=== PATIENT | female | born 1950 | race Two or more races ===

== ENCOUNTER 2017-11-19 06:59 | Day surgery (SDC) | payer OTHER ==
[2017-11-18 11:59] VITALS: BMI 25.9
[2017-11-19] MEDS ORDERED: PROPOFOL 20 ML ONE ×2 (08:04)
[2017-11-19] MEDS ORDERED: SUCCINYLCHOLINE CHLORIDE 200 MG/10 ML VIAL ONE (08:06)
[2017-11-19 08:35] VITALS: TEMP 97.7
[2017-11-19 11:12] VITALS: BP 126/67; PULSE 85
== END 2017-11-19 09:20 | disposition home or self-care (01) ==
LOC: JASU-ENDO 06:59
PROVIDERS: ATTEND Internal Medicine Gastroenterology
PROC: 0DJD8ZZ Inspection of Lower Intestinal Tract, Via Natural or Artificial Opening Endoscopic (ICD-10-PCS; principal; 2017-11-19 08:00)
DX: Z12.11 Encounter for screening for malignant neoplasm of colon (principal); K64.8 Other hemorrhoids

== ENCOUNTER 2019-08-09 11:42 | Inpatient (IN) | payer OTHER ==
[2019-08-09 11:49] VITALS: BMI 26.9
[2019-08-09] MEDS ORDERED: METOCLOPRAMIDE HCL INJECTION 10 MG/2 ML VIAL IVPB ONE (12:33)
[2019-08-09] MEDS ORDERED: LACTATED RINGERS SOLUTION 1,000 ML/1,000 ML INFUS.BAG IV STA (12:33)
--- NOTE | 2019-08-09 12:33 | PDOC ---
History of Present Illness - General Chief Complaint: Lightheaded Stated Complaint: LIGHTHEADED, WEAKNESS, HEADACHE History Source: Patient Exam Limitations: No Limitations - History of Present Illness Initial Comments: 08/09/19 12:27 68 yo F PMH IDDM, HTN, HLD, presenting with intermittent dizziness. States that on Friday night she had an episode of "room spinning" dizziness, associated with CRAFT, N w/o V, and diaphoresis, lasting minutes at a time, without any chest pain or abdominal pain, leaving her lying down and too dizzy to stand up. Denies fall, head trauma, or LOC. Repeat episodes Friday morning, Friday, and this morning. States that she has taken aspirin each time due to being scared, with prompt reversal of symptoms. Has taken two 81mg aspirin in the morning and two at night for the past three days, normally takes 81mg once a day. Currently complains of CRAFT, 05/12, throughout head. Denies urinary symptoms, weakness, numbness, or tingling, SOB, CP, abd pain. Past History - Past Medical History Allergies/Adverse Reactions: Allergies Allergy/AdvReac Type Severity Reaction Status Date / Time No Known Allergies Allergy Verified 08/09/19 11:49 Home Medications: Ambulatory Orders Acarbose [Precose -] 25 mg PO TID 11/18/17 Aspirin [Aspirin EC] 81 mg PO DAILY 11/18/17 Cholecalciferol (Vitamin D3) [Vitamin D3] 2,000 unit PO DAILY 11/18/17 Dulaglutide [Trulicity] 1.5 mg SQ WEEKLY 11/18/17 Fenofibrate Nanocrystallized [Triglide] 160 mg PO DAILY 11/18/17 Glyburide/Metformin HCl [Glyburide-Metformin 5-500 mg] 1.5 each PO DAILY Hydrochlorothiazide [Hctz -] 12.5 mg PO DAILY 11/18/17 Icosapent Ethyl [Vascepa] 1 gm PO QID 11/18/17 Krill/Om-3/Dha/Epa/Phospho/Ast [Krill Oil 500 mg Softgel] 1 each PO DAILY Rosuvastatin Calcium 20 mg PO HS 11/18/17 Telmisartan [Micardis] 20 mg PO DAILY 11/18/17 Anemia: No Asthma: No Cancer: No Cardiac Disorders: No CVA: No COPD: No CHF: No Dementia: No Diabetes: Yes (INSULIN DEPENDENT) GI Disorders: No Disorders: No HTN: Yes Hypercholesterolemia: Yes Liver Disease: No Seizures: No Thyroid Disease: No - Surgical History Abdominal Surgery: No Appendectomy: No Cardiac Surgery: No Cholecystectomy: No Lung Surgery: No Neurologic Surgery: No Orthopedic Surgery: No - Immunization History Immunization Up to Date: Yes - Psycho Social/Smoking Cessation Hx Smoking History: Never smoked Have you smoked in the past 12 months: No Number of Cigarettes Smoked Daily: 0 If you are a former smoker, when did you quit?: 0 Cigars Per Day: 0 Information on smoking cessation initiated: No Hx Alcohol Use: No Drug/Substance Use Hx: No Substance Use Type: None Review of Systems - Review of Systems Able to Perform ROS?: Yes Constitutional: Yes: Diaphoresis. No: Chills, Fever, Weakness HEENTM: No: Recent change in vision, Hearing Loss, Difficulty Swallowing Respiratory: No: Cough, Orthopnea, Shortness of Breath Cardiac (ROS): No: Chest Pain, Edema, Irregular Heart Rate ABD/GI: Yes: Nausea. No: Abdominal Distended, Constipated, Diarrhea, Vomiting : No: Burning, Dysuria, Discharge, Frequency, Flank Pain, Hematuria Musculoskeletal: No: Back Pain, Muscle Weakness Integumentary: No: Bruising, Dryness Neurological: Yes: Headache. No: Numbness, Paresthesia, Tingling Psychiatric: Yes: Anxiety. No: Depression *Physical Exam - Vital Signs Last Vital Signs Temp Pulse Resp BP Pulse Ox 98 F 91 H 18 138/81 99 08/09/19 11:47 08/09/19 11:47 08/09/19 11:47 08/09/19 11:47 08/09/19 11:47 - Physical Exam Comments: 08/09/19 13:08 Gen: well-developed, well-nourished, appears anxious Neuro: AAOX4, CN II-XII intact, FTN intact, EOMI, PERRLA. No nystagmus. 4/5 strength in R arm, 5/5 strength in all other extremities. HEENT: atraumatic, normocephalic Neck: trachea midline, supple CV: regular rate, regular rhythm Pulm: CTA b/l, no wheezing Abd: soft, non-distended, non-tender MSK: full ROM, pulses intact Extr: no edema, no deformities Skin: warm, dry ED Treatment Course - LABORATORY CBC & Chemistry Diagram: 08/09/19 12:30 08/09/19 12:30 - RADIOLOGY Radiology Studies Ordered: Category Date Time Status CHEST PA & LAT [RAD] Stat Radiology 08/09/19 12:25 Ordered Medical Decision Making - Medical Decision Making 08/09/19 13:11 Concern for ACS vs UTI vs electrolyte abnormality. - CBC, CMP - EKG, trop, DX PA + L - UA/UC - 1L LR and Reglan for current headache - ctm 08/09/19 13:53 Cr 2, confirmed with patient that she has known kidney disease 2/2 diabetes. EKG normal sinus without ischemic changes, CXR without acute pathology. 08/09/19 13:[address] Corado, states that the patient had significant R arm weakness when seen this morning in the office. While this appears to have mostly resolved here in the ED, considering the patient's risk factors and presenting symptomology, will get CT head non con. 08/09/19 14:56 CT head w/o intracranial hemorrhage or acute territorial infarct, however, patient has nonhemorrhagic lacunar infarct in L anterior periventricular white matter of indeterminate age. Also supratentorial microangiopathic ischemic changes with gliosis. Considering patient's risk factors and presentation, will get her admitted. 08/09/19 15:[address] Corado, who requested that we consult Dr. Daily (neuro) and Dr. Baldwin (covering for Dr. Russell). States Cr normally 1.6-1.8, so Cr of 2 is high for her. Discharge - Discharge Information Problems reviewed: Yes Clinical Impression/Diagnosis: Right sided weakness, Dizziness Condition: Guarded - Admission Yes - Follow up/Referral - Patient Discharge Instructions - Post Discharge Activity
[2019-08-09] MEDS ORDERED: METOCLOPRAMIDE HCL INJECTION 10 MG/2 ML VIAL ONE (12:44)
[2019-08-09 13:04] LABS: BASO % 0.6 % (0-2.0); EOS % 2.7 % (0-4.5); HEMATOCRIT 33.7 % (32.4-45.2); HEMOGLOBIN 11.2 GM/dL (10.7-15.3); LYMPH % 23.2 % (8-40); MCH 27.8 pg (25.7-33.7); MCHC 33.3 g/dl (32.0-36.0); MEAN CELL VOLUME 83.5 fl (80-96); MEAN PLT VOLUME 9.3 fl (7.5-11.1); MONO % 5.8 % (3.8-10.2); NEUT % 67.7 % (42.8-82.8); PLATELET COUNT 227 K/MM3 (134-434); RBC 4.04 M/mm3 (3.60-5.2); RDW 14.3 % (11.6-15.6); WHITE BLOOD COUNT 8.4 K/mm3 (4.0-10.0)
[2019-08-09 13:05] LABS: EPI CELLS 3.8 /HPF (0-5/HPF); HYALINE CASTS 6 /lpf (0-8); PH,URINE 5.5 (5.0-8.0); URINE APPEARANCE CLEAR; URINE BACTERIA 8.2 /hpf (NEGATIVE); URINE BILIRUBIN NEGATIVE (NEGATIVE); URINE COLOR YELLOW; URINE GLUCOSE (UA) TRACE (NEGATIVE); URINE KETONE NEGATIVE (NEGATIVE); URINE LEUK ESTERASE NEGATIVE (NEGATIVE); URINE NITRITE NEGATIVE (NEGATIVE); URINE PROTEIN 3+ (NEGATIVE); URINE RBC 0 /hpf (0-4); URINE UROBILINOGEN 0.2 mg/dL (0.2-1.0); URINE WBC 4 /hpf (0-5)
[2019-08-09 13:27] LABS: ALBUMIN 3.5 g/dl (3.4-5.0); BILIRUBIN,TOTAL 0.4 mg/dL (0.2-1); BLOOD UREA NITROGEN 30.1 mg/dL (7-18); CALCIUM 8.8 mg/dL (8.5-10.1); POTASSIUM 4.6 mmol/L (3.5-5.1); TOT PROT 7.6 g/dl (6.4-8.2)
--- NOTE | 2019-08-09 16:12 | EKG ---
Test Reason : Blood Pressure : / mmHG Vent. Rate : 084 BPM Atrial Rate : 084 BPM P-R Int : 160 ms QRS Dur : 086 ms QT Int : 346 ms P-R-T Axes : 018 -15 049 degrees QTc Int : 408 ms NORMAL SINUS RHYTHM NORMAL ECG WHEN COMPARED WITH ECG OF 27-AUG-2017 14:01, NO SIGNIFICANT CHANGE WAS FOUND Confirmed by SALOME GUILLERMO MD ([id number]) on 08/09/2019 4:12:11 PM Referred By: Confirmed By:SALOME GUILLERMO MD
--- NOTE | 2019-08-09 16:36 | PDOC ---
Attending Attestation - Resident Resident Name: Saeed Dwyer - ED Attending Attestation I have performed the following: I have examined & evaluated the patient, The case was reviewed & discussed with the resident, I agree w/resident's findings & plan, Exceptions are as noted - HPI HPI: 08/09/19 16:32 68-year-old female history of hypertension hyperlipidemia and diabetes here today complaining of vertigo-like symptoms and dizziness for the last 3 days. Patient states she noted it 3 days ago on awakening from sleep. Imbler like the room was spinning she felt extremely nauseous did not throw up but felt like she had to have a bowel movement became diaphoretic at that time. Now she is describing persistent room spinning feeling worse in the a.m. worse with certain movements and going from a lying to a sitting position. States she is still having symptoms here today denies any chest pains or palpitations was seen by Dr. Corado in the office and sent to the ED for evaluation. Patient denies any changes to her speech no focal weakness that she noted no fevers chills no ear ringing no other current complaints - Physicial Exam PE: 08/09/19 16:34 Awake alert no acute distress lungs are clear bilaterally heart is regular without any murmurs rubs or gallops abdomen is soft nontender skin is warm and dry neurologically the patient is awake alert oriented x3 her speech is clear cranial nerves II through XII are intact. Strength is noted to have mild right upper and right lower extremity weakness approximately 4+ out of 5. All else is 5 out of 5 [id number] is normal alternating hand movements are normal negative Romberg patient has a positive [place]-Hallpike to the right is extremely symptomatic going from lying to sitting . - Medical Decision Making 08/09/19 16:35 68-year-old female here complaint of vertigo history of hypertension hyperlipidemia and diabetes differential includes positional vertigo versus cerebellar CVA. Due to the subtle weakness on the patient's exam CT head was ordered chest x-ray and UA were ordered to rule out any underlying infection CBC CMP and troponin to rule out any underlying electrolyte ab normalities or anemia Patient CT head with age-indeterminate lacunar infarct will admit patient will require MRI will consult neurology Dr. Jenkins Heart Score/ECG Review #1 General ECG Interpretation: Sinus Rhythm, Normal Rate (84), Normal Intervals, No acute ischemic changes Compared to previous ECG there are: Other (left axis. no st t wave changes) NIH Stroke Scale - Initial Evaluation Level of consciousness: Alert Ask patient the month and their age: Answers both correctly Ask patient to open & close eyes; make fist and let go: Obeys both correctly Best gaze (horizontal eye movement): Normal Visual field testing: No visual field loss Facial paresis (Show teeth/raise eyebrows/close eyes tight): Normal symmetrical movement Motor Function: Left Arm: Normal Motor Function: Right Arm: Drift Motor Function: Left Leg: Normal (extends leg 30 degrees for 5 seconds without drift) Motor Function: Right Leg: Drift Limb Ataxia: No ataxia Sensory(Use pinprick test arms,legs,trunk,face/side to side): Normal Best language (Describe picture, name items, read sentences): No Aphasia Dysarthria (read several words): Normal articulation Extinction and Inattention: No abnormality - Total Score NIH Stroke Scale Score: 2
[2019-08-09] MEDS: INSULIN SLIDING SCALE (NOVOLOG) 1 VIAL SQ SCH ×2 (16:54→22:06)
[2019-08-09] MEDS: SODIUM CHLORIDE 1,000 ML IV SCH (16:56)
--- NOTE | 2019-08-09 17:31 | HP ---
CHIEF COMPLAINT: Weakness, vertigo PCP: Dr. Corado HISTORY OF PRESENT ILLNESS: 68yo R-handed F with h/o of T2DM, HTN, HLD who presents today due to vertigo and new onset R arm weakness. Pt reports she has been experiencing vertigo episodes for about 1-2 weeks. 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 She reports during these episodes she experiences extreme diaphoresis, chills, and some shortness of breath. She reports they last about 5-6 minutes and she is able to return to her daily activities without problems. After her vertigo episodes she notices intense 7-8/ 10 headache mostly b/l in the superior regions. Today she was seen by Dr. Corado, her PCP in the office, when it was noticed she had new onset R arm/ hand weakness. She reports she has had this for about 2-3 days and has had trouble holding coffee cups and other activites. Her at bedside reports that he will notice her shaking as well when she is trying to lift something. Pt denies any fevers, cough, shortness of breath, blurry vision, word-finding difficulties, chest pain, palpitations, diarrhea, numbness/tingling, difficulties with coordination, trouble walking. Of note: pt's most recent imaging of carotid u/s shows possible variance the vertebral arteries which could be suggestive of some intraluminal narrowing vs. other abnormality. Unsure of what prompted this exam as patient reports it was routine imaging and has no other insights into it. In addition, pt's baseline Cr is 1.5-1.[address] Corado to the ED physicians. PAST MEDICAL HISTORY: Type 2 DM HTN HLD PAST SURGICAL HISTORY: None Social History: Smoking: Denies Alcohol: Denies Drugs: Denies Lives with ; indepedent in ADLs Allergies No Known Allergies Allergy (Verified 08/09/19 11:49) HOME MEDICATIONS: Home Medications Medication Instructions Recorded Acarbose [Precose -] 25 mg PO TID 11/18/17 Aspirin [Aspirin EC] 81 mg PO DAILY 11/18/17 Cholecalciferol (Vitamin D3) 2,000 unit PO DAILY 11/18/17 [Vitamin D3] Dulaglutide [Trulicity] 1.5 mg SQ WEEKLY 11/18/17 Fenofibrate Nanocrystallized 160 mg PO DAILY 11/18/17 [Triglide] Glyburide/Metformin HCl 1.5 each PO DAILY 11/18/17 [Glyburide-Metformin 5-500 mg] Hydrochlorothiazide [Hctz -] 12.5 mg PO DAILY 11/18/17 Icosapent Ethyl [Vascepa] 1 gm PO QID 11/18/17 Krill/Om-3/Dha/Epa/Phospho/Ast 1 each PO DAILY 11/18/17 [Krill Oil 500 mg Softgel] Rosuvastatin Calcium 20 mg PO HS 11/18/17 Telmisartan [Micardis] 20 mg PO DAILY 11/18/17 REVIEW OF SYSTEMS as per HPI PHYSICAL EXAMINATION Vital Signs - 24 hr 08/09/19 08/09/19 11:47 16:48 Temperature 98 F Pulse Rate 91 H Pulse Rate [ 92 H Apical] Respiratory 18 18 Rate Blood Pressure 138/81 Blood Pressure 143/75 [Left Arm] O2 Sat by Pulse 99 100 Oximetry (%) GENERAL: Awake, alert, and fully oriented, in no acute distress. HEENT: NC/AT, EOMI without nystagmus, NICOLE, sclera anicteric, MMM NECK: No JVD, no masses, no thyromegaly, no carotid bruits appreciated LUNGS: CTA bilaterally. No wheezes, and no crackles. No accessory muscle use. HEART: RRR, normal S1 and S2 without murmur ABDOMEN: Soft, nontender, not distended, normoactive bowel sounds, no guarding, no rebound, no masses EXTREMITIES: 2+ pulses, warm, well-perfused. No calf tenderness. No peripheral edema. NEUROLOGICAL: manager php II-XII intact. [place]-Hallpike w Strength RUE 4+/5 compared to LUE in all palma Strength RLE 4+/5 compared to LLE in hip ext/flexion. 5/5 throughout in plantar/dorsal flexion Babinski downgoing b/l No dysmetria; no dysdiadocokinesia Sensation intact throughout Normal speech. Gait not observed PSYCHIATRIC: Cooperative. Good eye contact. Appropriate mood and affect. SKIN: Warm, dry, normal turgor, no rashes or lesions noted Laboratory Results - last 24 hr 08/09/19 08/09/19 08/09/19 12:30 12:30 12:30 WBC 8.4 RBC 4.04 Hgb 11.2 Hct 33.7 MCV 83.5 MCH 27.8 MCHC 33.3 RDW 14.3 Plt Count 227 MPV 9.3 Absolute Neuts (auto) 5.7 Neutrophils % 67.7 Lymphocytes % 23.2 Monocytes % 5.8 Eosinophils % 2.7 Basophils % 0.6 Nucleated RBC % 0 Sodium 138 Potassium 4.6 Chloride 105 Carbon Dioxide 24 Anion Gap 9 BUN 30.1 H Creatinine 2.0 H Est GFR (CKD-EPI)AfAm 28.80 Est GFR (CKD-EPI)NonAf 24.85 POC Glucometer Random Glucose 197 H Calcium 8.8 Total Bilirubin 0.4 AST 21 ALT 23 Alkaline Phosphatase 61 Troponin I Total Protein 7.6 Albumin 3.5 Urine Color Yellow Urine Appearance Clear Urine pH 5.5 Ur Specific [place] 1.017 Urine Protein 3+ H Urine Glucose (UA) Trace Urine Ketones Negative Urine Blood Negative Urine Nitrite Negative Urine Bilirubin Negative Urine Urobilinogen 0.2 Ur Leukocyte Esterase Negative Urine WBC (Auto) 4 Urine RBC (Auto) 0 Urine Casts (Auto) 6 U Epithel Cells (Auto) 3.8 Urine Bacteria (Auto) 8.2 08/09/19 08/09/19 08/09/19 12:30 12:54 16:52 WBC RBC Hgb Hct MCV MCH MCHC RDW Plt Count MPV Absolute Neuts (auto) Neutrophils % Lymphocytes % Monocytes % Eosinophils % Basophils % Nucleated RBC % Sodium Potassium Chloride Carbon Dioxide Anion Gap BUN Creatinine Est GFR (CKD-EPI)AfAm Est GFR (CKD-EPI)NonAf POC Glucometer 177 289 Random Glucose Calcium Total Bilirubin AST ALT Alkaline Phosphatase Troponin I < 0.02 Total Protein Albumin Urine Color Urine Appearance Urine pH Ur Specific [place] Urine Protein Urine Glucose (UA) Urine Ketones Urine Blood Urine Nitrite Urine Bilirubin Urine Urobilinogen Ur Leukocyte Esterase Urine WBC (Auto) Urine RBC (Auto) Urine Casts (Auto) U Epithel Cells (Auto) Urine Bacteria (Auto) ASSESSMENT/PLAN: Nonhemorrhagic lacunar infarct, indeterminate R/o Posterior CVA Acute on chronic kidney insufficiency T2DM HTN HLD --Pt noted to have CVA with indeterminate age on head CT noncontrast --Location would not explain vertigo, however must search for embolic disease if present --Previous U/S showing possible vertebral artery variation in flow could possible explain vertigo with orthostatic changes --Cannot do MRA or CTA at this time due to acute renal insufficiency --Will order MRI for r/o acute infarct --Carotid stenosis and echocardiogram ordered for r/o of embolic disease --ASA 81mg qdaily continued --Home dose statin ordered --A1c and lipid panel pending; to f/u --Neurology consultation placed --Meclizine PRN ordered for pt's vertigo --Cardiac monitoring --Hold HCTZ and Micardis due to elevated Cr --Monitor Cr and avoid nephrotoxic agents --Obtain urine Cr and urine urea for FeUrea calculation --BGM ACHS with ISS ACHS for glycemic control --If routinely high glucose can start long-acting while in hospital setting FEN: Fluids: NS@83cc/hr Electrolyte abnormalities: None Nutrition: Diabetic diet PPX: DVT - Heparin TID GI - Not indicated Deconditioning - PT ordered dispo: Telemetry admission Case discussed with Dr. Shirley Gary, DO - IM PGy-3 Visit type - Emergency Visit Emergency Visit: Yes ED Registration Date: 08/09/19 Care time: The patient presented to the Emergency Department on the above date and was hospitalized for further evaluation of their emergent condition. - New Patient This patient is new to me today: Yes Date on this admission: 08/09/19 - Critical Care Critical Care patient: No ATTENDING PHYSICIAN STATEMENT I saw and evaluated the patient. I reviewed the resident's note and discussed the case with the resident. I agree with the resident's findings and plan as documented. SUBJECTIVE: OBJECTIVE: ASSESSMENT AND PLAN:
--- NOTE | 2019-08-09 18:09 | PN ---
Teaching Attending Note Name of Resident: Mustapha Gary ATTENDING PHYSICIAN STATEMENT I saw and evaluated the patient. I reviewed the resident's note and discussed the case with the resident. I agree with the resident's findings and plan as documented. SUBJECTIVE: This is a 68 year old woman with a history of HTN, hyperlipidemia, type 2 DM who comes to the ED today complaining of dizziness and right arm weakness. She has been having episodes of dizziness over the last 2 weeks. She reports having a sensation of the room spinning. Symptoms are worse with movement and occur early in the morning. She saw Dr. Corado today and he noted right arm and hand weakness. She has noticed that she has been having difficulty holding objects for the last 3 days. OBJECTIVE: Vital Signs Period Temp Pulse Resp BP Sys/[place] Pulse Ox Last 24 Hr 98 F 91-92 18-18 138-143/75-81 99-100 HEART: S1S2, RRR LUNGS: Clear ABDOMEN: Soft, non-tender, non-distended, normal BS EXTREMITIES: No edema NEUROLOGICAL: Strength 4/5 in RUE and RLE otherwise unremarkable Laboratory Results - last 24 hr 08/09/19 08/09/19 08/09/19 12:30 12:30 12:30 WBC 8.4 RBC 4.04 Hgb 11.2 Hct 33.7 MCV 83.5 MCH 27.8 MCHC 33.3 RDW 14.3 Plt Count 227 MPV 9.3 Absolute Neuts (auto) 5.7 Neutrophils % 67.7 Lymphocytes % 23.2 Monocytes % 5.8 Eosinophils % 2.7 Basophils % 0.6 Nucleated RBC % 0 Sodium 138 Potassium 4.6 Chloride 105 Carbon Dioxide 24 Anion Gap 9 BUN 30.1 H Creatinine 2.0 H Est GFR (CKD-EPI)AfAm 28.80 Est GFR (CKD-EPI)NonAf 24.85 POC Glucometer Random Glucose 197 H Calcium 8.8 Total Bilirubin 0.4 AST 21 ALT 23 Alkaline Phosphatase 61 Troponin I Total Protein 7.6 Albumin 3.5 Triglycerides 114 Cholesterol 200 Total LDL Cholesterol 113 H HDL Cholesterol 69 H Urine Color Yellow Urine Appearance Clear Urine pH 5.5 Ur Specific [place] 1.017 Urine Protein 3+ H Urine Glucose (UA) Trace Urine Ketones Negative Urine Blood Negative Urine Nitrite Negative Urine Bilirubin Negative Urine Urobilinogen 0.2 Ur Leukocyte Esterase Negative Urine WBC (Auto) 4 Urine RBC (Auto) 0 Urine Casts (Auto) 6 U Epithel Cells (Auto) 3.8 Urine Bacteria (Auto) 8.2 08/09/19 08/09/19 08/09/19 12:30 12:54 16:52 WBC RBC Hgb Hct MCV MCH MCHC RDW Plt Count MPV Absolute Neuts (auto) Neutrophils % Lymphocytes % Monocytes % Eosinophils % Basophils % Nucleated RBC % Sodium Potassium Chloride Carbon Dioxide Anion Gap BUN Creatinine Est GFR (CKD-EPI)AfAm Est GFR (CKD-EPI)NonAf POC Glucometer 177 289 Random Glucose Calcium Total Bilirubin AST ALT Alkaline Phosphatase Troponin I < 0.02 Total Protein Albumin Triglycerides Cholesterol Total LDL Cholesterol HDL Cholesterol Urine Color Urine Appearance Urine pH Ur Specific [place] Urine Protein Urine Glucose (UA) Urine Ketones Urine Blood Urine Nitrite Urine Bilirubin Urine Urobilinogen Ur Leukocyte Esterase Urine WBC (Auto) Urine RBC (Auto) Urine Casts (Auto) U Epithel Cells (Auto) Urine Bacteria (Auto) Home Medications Medication Instructions Recorded Acarbose [Precose -] 25 mg PO TID 11/18/17 Aspirin [Aspirin EC] 81 mg PO DAILY 11/18/17 Cholecalciferol (Vitamin D3) 2,000 unit PO DAILY 11/18/17 [Vitamin D3] Dulaglutide [Trulicity] 1.5 mg SQ WEEKLY 11/18/17 Fenofibrate Nanocrystallized 160 mg PO DAILY 11/18/17 [Triglide] Glyburide/Metformin HCl 1.5 each PO DAILY 11/18/17 [Glyburide-Metformin 5-500 mg] Hydrochlorothiazide [Hctz -] 12.5 mg PO DAILY 11/18/17 Icosapent Ethyl [Vascepa] 1 gm PO QID 11/18/17 Krill/Om-3/Dha/Epa/Phospho/Ast 1 each PO DAILY 11/18/17 [Krill Oil 500 mg Softgel] Rosuvastatin Calcium 20 mg PO HS 11/18/17 Telmisartan [Micardis] 20 mg PO DAILY 11/18/17 ASSESSMENT AND PLAN: This is a 68 year old woman with a history of HTN, hyperlipidemia, type 2 DM who presented to the ED with dizziness and right arm weakness. 1. Vertigo - Head CT shows lacunar infarct of indeterminate age in left anterior periventricular white matter - Monitor on telemetry - Meclizine as needed - MRI of brain - Carotid dopplers - Echocardiogram - Neurology evaluation 2. Acute kidney injury - Baseline creatinine 1.[address] Corado - IV fluid - Hold Micardis, HCTZ, metformin 3. Stage 3 CKD 4. HTN - Hold Micardis, HCTZ secondary to RALPH 5. Hyperlipidemia - Continue Vascepa, fenofibrate 6. Type 2 DM - Hold metformin, glyburide, Trulicity - Fingersticks with Novolog sliding scale
[2019-08-09] MEDS ORDERED: diazePAM 5 MG TABLET PO ONE (18:14)
[2019-08-09] MEDS ORDERED: diazePAM 5 MG TABLET ONE (18:15)
[2019-08-09] MEDS: MECLIZINE HCL 12.5 MG TABLET PO PRN (20:02)
[2019-08-09] MEDS: HEPARIN NA (PORCINE) 5,000 UNITS/ML 1ML VIAL SQ SCH (22:05)
[2019-08-09] MEDS: ROSUVASTATIN CA 20 MG TABLET (FP) PO SCH (22:05)
[2019-08-10] MEDS: MECLIZINE HCL 12.5 MG TABLET PO PRN ×2 (06:00→13:18)
[2019-08-10] MEDS: HEPARIN NA (PORCINE) 5,000 UNITS/ML 1ML VIAL SQ SCH ×3 (06:00→21:18)
[2019-08-10] MEDS: INSULIN SLIDING SCALE (NOVOLOG) 1 VIAL SQ SCH ×4 (06:24→21:20)
[2019-08-10] MEDS: SODIUM CHLORIDE 1,000 ML IV SCH ×2 (06:25→12:11)
[2019-08-10 07:39] LABS: BILIRUBIN,TOTAL 0.3 mg/dL (0.2-1); BLOOD UREA NITROGEN 22.5 mg/dL (7-18); CALCIUM 8.3 mg/dL (8.5-10.1); CREATININE 1.8 mg/dL (0.55-1.3); MAGNESIUM 1.6 mg/dL (1.8-2.4); PHOSPHOROUS 4.1 mg/dL (2.5-4.9); TOT PROT 6.7 g/dl (6.4-8.2)
[2019-08-10] MEDS ORDERED: MAGNESIUM SULF 50% (8.12 MEQ/2 ML-1 GM VIAL) IVPB ONE (07:40)
[2019-08-10] MEDS: ASPIRIN COATED 81 MG TABLET.EC PO SCH (09:05)
--- NOTE | 2019-08-10 09:16 | CONSULT ---
Consult - text type - Consultation Consultation Note: Neurology CHIEF COMPLAINT: Weakness, vertigo PCP: Dr. Corado HISTORY OF PRESENT ILLNESS: 68yo R-handed F with h/o of T2DM, HTN, HLD who presented for vertigo and Acute RUE weakness. Pt reported she had been experiencing vertigo episodes for about 1 -2 weeks, positional, with room spinning and unsteadiness, lasting 5 mins but able to return to her daily activities thereafter. On day of admission felt R arm/hand weakness. She reported she has had this for about 2-3 days and has had trouble holding coffee cups and other activites. Denied any fevers, cough, shortness of breath, blurry vision, word-finding difficulties, chest pain, palpitations, diarrhea, numbness/tingling, difficulties with coordination, trouble walking. She completed noncontrast head CT on admission which showed age indeterminate infarct. Overnight MRI of the brain was completed and demonstrated a punctate chronic left cerebellar infarct which she reports not being aware of. There was mild periventricular microvascular changes as well. I reassured her that there was no new infarcts noted and she does report taking aspirin 81 mg daily. Of note,carotid Dopplers demonstrated no evidence of high -grade stenosis in the left vertebral artery appeared patent however the right vertebral artery could not be visualized possibly due to basilar disease, hyperplasia, or technical factors. CTA may be of benefit but renal function demonstrated elevated creatinine. Patient is on statin and LDL 113. PAST MEDICAL HISTORY: Type 2 DM HTN HLD PAST SURGICAL HISTORY: None Social History: Smoking: Denies Alcohol: Denies Drugs: Denies Lives with ; indepedent in ADLs Allergies No Known Allergies Allergy (Verified 08/09/19 11:49) HOME MEDICATIONS: Home Medications Medication Instructions Recorded Acarbose [Precose -] 25 mg PO TID 11/18/17 Aspirin [Aspirin EC] 81 mg PO DAILY 11/18/17 Cholecalciferol (Vitamin D3) 2,000 unit PO DAILY 11/18/17 [Vitamin D3] Dulaglutide [Trulicity] 1.5 mg SQ WEEKLY 11/18/17 Fenofibrate Nanocrystallized 160 mg PO DAILY 11/18/17 [Triglide] Glyburide/Metformin HCl 1.5 each PO DAILY 11/18/17 [Glyburide-Metformin 5-500 mg] Hydrochlorothiazide [Hctz -] 12.5 mg PO DAILY 11/18/17 Icosapent Ethyl [Vascepa] 1 gm PO QID 11/18/17 Krill/Om-3/Dha/Epa/Phospho/Ast 1 each PO DAILY 11/18/17 [Krill Oil 500 mg Softgel] Rosuvastatin Calcium 20 mg PO HS 11/18/17 Telmisartan [Micardis] 20 mg PO DAILY 11/18/17 REVIEW OF SYSTEMS CONSTITUTIONAL: Absent: fever, chills, diaphoresis, + generalized weakness, malaise HEENT: Absent: rhinorrhea, nasal congestion, throat pain, throat swelling, difficulty swallowing, mouth swelling, ear pain, eye pain, visual changes CARDIOVASCULAR: Absent: chest pain, syncope, palpitations, irregular heart rate, lightheadedness , peripheral edema RESPIRATORY: Absent: cough, shortness of breath, dyspnea with exertion, orthopnea, wheezing, stridor, hemoptysis GASTROINTESTINAL: Absent: abdominal pain, abdominal distension, nausea GENITOURINARY: Absent: dysuria, frequency, urgency, MUSCULOSKELETAL: Absent: myalgia, SKIN: Absent: rash, itching, pallor HEMATOLOGIC/IMMUNOLOGIC: Absent: easy bleeding, easy bruising, lymphadenopathy, frequent infections ENDOCRINE: Absent: unexplained weight gain, unexplained weight loss, heat intolerance, cold intolerance NEUROLOGIC: Absent: headache, focal weakness or paresthesias, dizziness, seizure, PSYCHIATRIC: Absent: anxiety, depression, suicidal or homicidal ideation, hallucinations. PHYSICAL EXAMINATION Vital Signs Period Temp Pulse Resp BP Sys/Roldan Pulse Ox Last 24 Hr 97.9 F-98.5 F 84-92 18-20 118-154/71-87 98-100 Gen: Awake, alert, responds to questions appropriately Card: RRR, nml S1,S2 Resp: Normal symmetric effort, lungs clear to auscultation Abdomen: Soft, nontender, bowel sounds active Musculoskeletal: Adequate range of motion without significant deformity Head atraumatic and normocephalic CN: PERRL, EOMI intact, no apparent facial droop, no abnormalities in facial sensation, palate elevates, uvula and tongue midline Motor: Strength intact to confrontation in upper and lower extremities. Tone normal throughout Sensory: Intact to Temperature, light touch, and pinprick in all extremities Reflexes: 2+ biceps, brachioradialis, patellar, achillies Coordination: Intact on [id number] testing PSYCHIATRIC: Cooperative. Good eye contact. Appropriate mood and affect. SKIN: Warm, dry, normal turgor, no rashes or lesions noted Laboratory Results - last 24 hr 08/09/19 08/09/19 08/09/19 12:30 12:30 12:30 WBC 8.4 RBC 4.04 Hgb 11.2 Hct 33.7 MCV 83.5 MCH 27.8 MCHC 33.3 RDW 14.3 Plt Count 227 MPV 9.3 Absolute Neuts (auto) 5.7 Neutrophils % 67.7 Lymphocytes % 23.2 Monocytes % 5.8 Eosinophils % 2.7 Basophils % 0.6 Nucleated RBC % 0 Sodium 138 Potassium 4.6 Chloride 105 Carbon Dioxide 24 Anion Gap 9 BUN 30.1 H Creatinine 2.0 H Est GFR (CKD-EPI)AfAm 28.80 Est GFR (CKD-EPI)NonAf 24.85 POC Glucometer Random Glucose 197 H Calcium 8.8 Total Bilirubin 0.4 AST 21 ALT 23 Alkaline Phosphatase 61 Troponin I Total Protein 7.6 Albumin 3.5 Urine Color Yellow Urine Appearance Clear Urine pH 5.5 Ur Specific Tobyhanna 1.017 Urine Protein 3+ H Urine Glucose (UA) Trace Urine Ketones Negative Urine Blood Negative Urine Nitrite Negative Urine Bilirubin Negative Urine Urobilinogen 0.2 Ur Leukocyte Esterase Negative Urine WBC (Auto) 4 Urine RBC (Auto) 0 Urine Casts (Auto) 6 U Epithel Cells (Auto) 3.8 Urine Bacteria (Auto) 8.2 08/09/19 08/09/19 08/09/19 12:30 12:54 16:52 WBC RBC Hgb Hct MCV MCH MCHC RDW Plt Count MPV Absolute Neuts (auto) Neutrophils % Lymphocytes % Monocytes % Eosinophils % Basophils % Nucleated RBC % Sodium Potassium Chloride Carbon Dioxide Anion Gap BUN Creatinine Est GFR (CKD-EPI)AfAm Est GFR (CKD-EPI)NonAf POC Glucometer 177 289 Random Glucose Calcium Total Bilirubin AST ALT Alkaline Phosphatase Troponin I < 0.02 Total Protein Albumin Urine Color Urine Appearance Urine pH Ur Specific [place]anna Urine Protein Urine Glucose (UA) Urine Ketones Urine Blood Urine Nitrite Urine Bilirubin Urine Urobilinogen Ur Leukocyte Esterase Urine WBC (Auto) Urine RBC (Auto) Urine Casts (Auto) U Epithel Cells (Auto) Urine Bacteria (Auto) ASSESSMENT/PLAN: 68yo R-handed F with h/o of T2DM, HTN, HLD who presented for vertigo and Acute RUE weakness. Pt reported she had been experiencing vertigo episodes for about 1 -2 weeks, positional, with room spinning and unsteadiness, lasting 5 mins but able to return to her daily activities thereafter. On day of admission felt R arm/hand weakness. She reported she has had this for about 2-3 days and has had trouble holding coffee cups and other activites. She completed noncontrast head CT on admission which showed age indeterminate infarct. Overnight MRI of the brain was completed and demonstrated a punctate chronic left cerebellar infarct which she reports not being aware of. There was mild periventricular microvascular changes as well. I reassured her that there was no new infarcts noted and she does report taking aspirin 81 mg daily. Cerebellar infarct may be contributing to her crhonic dizziness. Her RUE strength is at baseline. Of note ,carotid Dopplers demonstrated no evidence of high-grade stenosis in the left vertebral artery appeared patent however the right vertebral artery could not be visualized possibly due to basilar disease, hyperplasia, or technical factors. CTA may be of benefit but renal function demonstrated elevated creatinine. Patient is on statin and LDL 113. RUE weakness improved and no deficits noted on exam. Imaging without acute changes and therefore can continue ASA 81mg from neuro standpoint. However, recommend input from vascular (dr. abdalla) regarding vertebral imaging and if further antiplatelet or anticoagulation medication needed. Complete, follow-up echo. can continue current dose of statin for now but advised patient to have dietary modification and goal LDL is less than 100. Recheck LDL within 3 months. Monitor blood pressure, maintain normotensive range. Follow-up renal recommendations, consider CTA if renal function improves and if sampling theory teacher in agreement. Monitor BGM, AIC, maintain euglycemic range. Telemetry monitoring, cardiology follow-up.
[2019-08-10] MEDS ORDERED: FLU VACCINE QUAD 60 MCG/0.5 ML (MDV 19-20) IM ONE (10:00)
--- NOTE | 2019-08-10 11:35 | ECHO ---
Version: 1 Name: YIFAN CONTRERAS Exam: Adult Echocardiogram Study Date: 08/10/2019, 9:52 AM Age: 68 Years MMode/2D Measurements & Calculations IVSd: 0.96 cm LVIDs: 3.2 cm LVIDd: 4.5 cm LVPWd: 0.93 cm LVOT diam: 2.11 cm Ao root diam: 3.1 cm Doppler Measurements & Calculations MV E max jose luis: 58.2 cm/sec Med E/e': 7.7 MV A max jose luis: 80.9 cm/sec Med Peak E' Jose Luis: 7.5 cm/sec MV E/A: 0.72 Lat E/e': 8.8 Lat Peak E' Jose Luis: 6.6 cm/sec MR max P.7 mmHg Ao max P.9 mmHg Ao V2 max: 98.8 cm/sec PI end-d jose luis: 95.3 cm/sec TR max jose luis: 165.3 cm/sec TR max P.9 mmHg Left Ventricle The left ventricular size, thickness and function are normal. Ejection Fraction = 70%. The transmitr al spectral Doppler flow pattern is suggestive of impaired LV relaxation. Right Ventricle The right ventricle is normal in size and function. Atria Normal left and right atrial size and function. Mitral Valve The mitral valve is normal in structure and function. There is trace mitral regurgitation. Tricuspid Valve The tricuspid valve is normal. There is trace tricuspid regurgitation. Aortic Valve There is mild aortic valve thickening. Trace aortic regurgitation. Pulmonic Valve The pulmonic valve is not well seen, but is grossly normal. Great Vessels The aortic root is normal size. Normal aortic arch, descending and ascending aorta. Pericardium/Pleura There is no pericardial effusion. Summary Statements The left ventricular size, thickness and function are normal Ejection Fraction = 70%. The transmitral spectral Doppler flow pattern is suggestive of impaired LV relaxation. The right ventricle is normal in size and function. Normal left and right atrial size and function. The mitral valve is normal in structure and function. There is trace mitral regurgitation. The tricuspid valve is normal. There is trace tricuspid regurgitation. There is mild aortic valve thickening. Trace aortic regurgitation. The pulmonic valve is not well seen, but is grossly normal. The aortic root is normal size. Normal aortic arch, descending and ascending aorta There is no pericardial effusion. Gerardo Bartholomew 08/10/2019, 10:35 AM Ordering Physician: Mustapha Gary Referring Physician: JAMEE Performed By: Catherine Mendoza
--- NOTE | 2019-08-10 15:28 | CONSULT ---
Consult - text type - Consultation Consultation Note: Renal consult for CKD and contrast nephropathy risk stratification This is a 68 year old woman with history of CKD stage 4 (baseline Cr ~2), DM Type 2 on insulin, hypertension and hyperlipidemia who presented from home with dizziness and CRAFT and admitted for r/o CVA. No acute CVA noted on MRI but chronic left punctate crebellar infarct noted. There is concern for possible vertebral artery stenosis. Denies any sob cp, abd pain, fever or chills. Feels better now. No N/V/D. No dysuria, frequency or urgency. Making urine without difficulty. PMHx: as above Allergies: NKDA Family Hx: NC Social Hx: No T/A/D ROS: As per HPI, all other pertinent ros negative Home Medications Medication Instructions Recorded Acarbose [Precose -] 25 mg PO TID 11/18/17 Aspirin [Aspirin EC] 81 mg PO DAILY 11/18/17 Cholecalciferol (Vitamin D3) 2,000 unit PO DAILY 11/18/17 [Vitamin D3] Dulaglutide [Trulicity] 1.5 mg SQ WEEKLY 11/18/17 Fenofibrate Nanocrystallized 160 mg PO DAILY 11/18/17 [Triglide] Glyburide/Metformin HCl 1.5 each PO DAILY 11/18/17 [Glyburide-Metformin 5-500 mg] Hydrochlorothiazide [Hctz -] 12.5 mg PO DAILY 11/18/17 Icosapent Ethyl [Vascepa] 1 gm PO QID 11/18/17 Krill/Om-3/Dha/Epa/Phospho/Ast 1 each PO DAILY 11/18/17 [Krill Oil 500 mg Softgel] Rosuvastatin Calcium 20 mg PO HS 11/18/17 Telmisartan [Micardis] 20 mg PO DAILY 11/18/17 Vital Signs Temperature 98.9 F 08/10/19 14:00 Pulse Rate 92 H 08/10/19 14:00 Respiratory Rate 20 08/10/19 10:00 Blood Pressure 151/87 08/10/19 14:00 O2 Sat by Pulse Oximetry (%) 99 08/10/19 10:00 Intake & Output 08/07/19 08/08/19 08/09/19 08/10/19 23:59 23:59 23:59 23:59 Intake Total 340 1560 Balance 340 1560 Weight 62.596 kg NAD awake and alert neck supple, no JVD RRR, no M/R CTA soft NT/ND no LE edema CBC, BMP 08/09/19 12:30 08/10/19 06:30 Current Medications Aspirin (Ecotrin -) 81 mg PO DAILY ON LICENSE OF [facility] Last Admin: 08/10/19 09:05 Dose: 81 mg Heparin Sodium (Porcine) (Heparin -) 5,000 unit SQ TID ROSANA Last Admin: 08/10/19 06:00 Dose: 5,000 unit Sodium Chloride (Normal Saline -) 1,000 mls @ 83 mls/hr IV ASDIR ROSANA Last Admin: 08/10/19 06:25 Dose: 83 mls/hr Insulin Aspart (Novolog Vial Sliding Scale -) 1 vial SQ ACHS ON LICENSE OF [facility]; Protocol Last Admin: 08/10/19 11:25 Dose: 2 unit Meclizine HCl (Antivert -) 12.5 mg PO Q6H PRN PRN Reason: VERTIGO Last Admin: 08/10/19 06:00 Dose: 12.5 mg Rosuvastatin Calcium (Crestor -) 20 mg PO HS ON LICENSE OF [facility] Last Admin: 08/09/19 22:05 Dose: 20 mg 68 year old woman with history of CKD stage 4 (baseline Cr ~2), DM Type 2 on insulin, hypertension and hyperlipidemia who presented from home with dizziness and CRAFT and admitted for r/o CVA. 1. CKD stage 4 2. Contrast nephropathy risk stratification 3. Chronic cerebellar infarction 4. Hypertension 5. DM type 2 on insulin ROSANNE risk as calculated using the aye post PCI risk calculator is as follows: 26% risk of contrast nephropathy and 1% risk of acute dialysis Pt cannot get Dwayne with MRA given eGFR < 30 can consider MRA without contrast Information shared with the patient. Neurolgoy follow up can d/c IVF if no diagnostic test or intervention planned. Thank you Marcus Arora DO
--- NOTE | 2019-08-10 17:39 | PN ---
Teaching Attending Note Name of Resident: Mustapha Gary ATTENDING PHYSICIAN STATEMENT I saw and evaluated the patient. I reviewed the resident's note and discussed the case with the resident. I agree with the resident's findings and plan as documented. SUBJECTIVE: Patient reports dizziness and weakness have improved. OBJECTIVE: Vital Signs Period Temp Pulse Resp BP Sys/Roldan Pulse Ox Last 24 Hr 97.9 F-98.9 F 84-92 18-20 118-154/71-87 98-99 HEART: S1S2, RRR LUNGS: Clear ABDOMEN: Soft, non-tender, non-distended, normal BS EXTREMITIES: No edema NEUROLOGICAL: Non-focal Laboratory Results - last 24 hr 08/09/19 08/09/19 08/09/19 12:30 12:30 18:15 Sodium 138 Potassium 4.6 Chloride 105 Carbon Dioxide 24 Anion Gap 9 BUN 30.1 H Creatinine 2.0 H Est GFR (CKD-EPI)AfAm 28.80 Est GFR (CKD-EPI)NonAf 24.85 POC Glucometer Random Glucose 197 H Hemoglobin A1c % 8.7 H Calcium 8.8 Phosphorus Magnesium Total Bilirubin 0.4 AST 21 ALT 23 Alkaline Phosphatase 61 Total Protein 7.6 Albumin 3.5 Triglycerides 114 Cholesterol 200 Total LDL Cholesterol 113 H HDL Cholesterol 69 H Ur Random Creatinine Ur Random Urea Nitrogn 315 L 08/09/19 08/09/19 08/10/19 18:35 21:56 05:41 Sodium Potassium Chloride Carbon Dioxide Anion Gap BUN Creatinine Est GFR (CKD-EPI)AfAm Est GFR (CKD-EPI)NonAf POC Glucometer 275 165 Random Glucose Hemoglobin A1c % Calcium Phosphorus Magnesium Total Bilirubin AST ALT Alkaline Phosphatase Total Protein Albumin Triglycerides Cholesterol Total LDL Cholesterol HDL Cholesterol Ur Random Creatinine 34.0 Ur Random Urea Nitrogn 08/10/19 08/10/19 08/10/19 06:30 10:48 14:15 Sodium 140 Potassium 4.0 Chloride 109 H Carbon Dioxide 26 Anion Gap 6 L BUN 22.5 H Creatinine 1.8 H Est GFR (CKD-EPI)AfAm 32.71 Est GFR (CKD-EPI)NonAf 28.22 POC Glucometer 216 Random Glucose 186 H Hemoglobin A1c % Calcium 8.3 L Phosphorus 4.1 Magnesium 1.6 L Total Bilirubin 0.3 AST 18 ALT 19 Alkaline Phosphatase 62 Total Protein 6.7 Albumin 3.0 L Triglycerides Cholesterol Total LDL Cholesterol HDL Cholesterol Ur Random Creatinine 32.0 Ur Random Urea Nitrogn Current Medications Generic Name Dose Route Start Last Admin Trade Name Madan PRN Reason Stop Dose Admin Aspirin 81 mg 08/10/19 10:00 08/10/19 09:05 Ecotrin - PO 81 mg DAILY ROSANA Administration Heparin Sodium (Porcine) 5,000 unit 08/09/19 22:00 08/10/19 06:00 Heparin - SQ 5,000 unit TID ROSANA Administration Sodium Chloride 1,000 mls @ 83 mls/hr 08/09/19 15:30 08/10/19 06:25 Normal Saline - IV 83 mls/hr ASDIR ROSANA Administration Insulin Aspart 1 vial 08/09/19 16:30 08/10/19 11:25 Novolog Vial Sliding Scale - SQ 2 unit ACHS ROSANA Administration Protocol Meclizine HCl 12.5 mg 08/09/19 17:34 08/10/19 06:00 Antivert - PO 12.5 mg Q6H PRN Administration VERTIGO Rosuvastatin Calcium 20 mg 08/09/19 22:00 08/09/19 22:05 Crestor - PO 20 mg HS ROSANA Administration ASSESSMENT AND PLAN: This is a 68 year old woman with a history of HTN, hyperlipidemia, type 2 DM who presented to the ED with dizziness and right arm weakness. 1. Vertigo - Head CT shows lacunar infarct of indeterminate age in left anterior periventricular white matter - MRI of brain shows no acute infarct, punctate chronic left cerebellar infarct, mild periventricular chronic microvascular ischemic changes - Carotid dopplers show no evidence of hemodynamically significant stenosis, patent left vertebral artery, right vertebral artery not visualized - Echocardiogram shows normal LV, EF 70%, impaired LV relaxation, normal RV, trace MR, trace TR, trace AR - No arrhythmias on telemetry - Continue Meclizine as needed - LDL 113 - Crestor started - Continue aspirin - Cannot do CTA of neck/brain secondary to elevated creatinine so will do MRA without gadolinium 2. Acute kidney injury - Baseline creatinine 1.[address] Corado - Creatinine improving with IV fluid - Continue to hold Micardis, HCTZ, metformin 3. Stage 3 CKD 4. HTN - Hold Micardis, HCTZ secondary to RALPH 5. Hyperlipidemia - Continue Crestor 6. Type 2 DM - Metformin, glyburide, Trulicity held - Continue Novolog sliding scale
[2019-08-10] MEDS ORDERED: ALPRAZolam 1 MG TABLET PO ONE (18:59)
[2019-08-10] MEDS ORDERED: ALPRAZolam 1 MG TABLET PO PRN (18:59)
--- NOTE | 2019-08-10 19:03 | PN ---
Progress Note (short form) - Note Progress Note: HPI: Pt without events last night. Nothing on telemetry monitoring. Pt reports dizziness improved and Meclizine helping. Weakness has even been improving. Vital Signs Temperature 98.3 F 08/10/19 17:00 Pulse Rate 89 08/10/19 17:00 Respiratory Rate 20 08/10/19 17:00 Blood Pressure 131/75 08/10/19 17:00 O2 Sat by Pulse Oximetry (%) 99 08/10/19 10:00 GENERAL: Awake, alert, and fully oriented, in no acute distress. HEENT: NC/AT, EOMI without nystagmus, NICOLE, sclera anicteric, MMM NECK: No JVD, no masses, no thyromegaly, no carotid bruits appreciated LUNGS: CTA bilaterally. No wheezes, and no crackles. No accessory muscle use. HEART: RRR, normal S1 and S2 without murmur ABDOMEN: Soft, nontender, not distended, normoactive bowel sounds EXTREMITIES: 2+ pulses, warm, well-perfused. No calf tenderness. No peripheral edema. NEUROLOGICAL: drupal architect II-XII intact. Strength RLE and RUE indiscriminant in all palma Babinski downgoing b/l Sensation intact throughout Normal speech. Gait not observed PSYCHIATRIC: Cooperative. Good eye contact. Appropriate mood and affect. SKIN: Warm, dry, normal turgor, no rashes CBC, BMP 08/09/19 12:30 08/10/19 06:30 Microbiology 08/09/19 12:30 Urine - Urine Clean Catch Urine Culture - Final Strep Agalactiae Group B Active Medications Alprazolam (Xanax) 1 mg PO ONCE PRN PRN Reason: ANXIETY Stop: 08/11/19 18:58 Aspirin (Ecotrin -) 81 mg PO DAILY [facility] Last Admin: 08/10/19 09:05 Dose: 81 mg Heparin Sodium (Porcine) (Heparin -) 5,000 unit SQ TID [facility] Last Admin: 08/10/19 14:11 Dose: 5,000 unit Sodium Chloride (Normal Saline -) 1,000 mls @ 83 mls/hr IV ASDIR [facility] Last Admin: 08/10/19 12:11 Dose: Not Given Insulin Aspart (Novolog Vial Sliding Scale -) 1 vial SQ ACHS [facility]; Protocol Last Admin: 10/08/19 18:12 Dose: 3 unit Meclizine HCl (Antivert -) 12.5 mg PO Q6H PRN PRN Reason: VERTIGO Last Admin: 08/10/19 06:00 Dose: 12.5 mg Rosuvastatin Calcium (Crestor -) 20 mg PO HS ROSANA Last Admin: 08/09/19 22:05 Dose: 20 mg A/P Nonhemorrhagic lacunar infarct, indeterminate Chronic cerebellar infarct Acute on chronic kidney insufficiency T2DM HTN HLD --Chronic cerebellar infarct noted which can explain symptoms --Carotid U/S reviewed once more showing vertebral artery variation --Neurology and renal recs appreciated --Will receive MRA Brain and Neck WITHOUT CONTRAST --Echocardiogram reviewed: EF 70% --ASA 81mg qdaily continued --Continue Cresto 20mg HS --Meclizine PRN ordered for pt's vertigo --Cardiac monitoring to continue --Holding HCTZ and Micardis due to elevated Cr --FeUrea indicating chronic disease --Monitor Cr and avoid nephrotoxic agents --BGM ACHS with ISS ACHS for glycemic control --If routinely high glucose can start long-acting while in hospital setting FEN: Fluids: NS@83cc/hr Electrolyte abnormalities: None Nutrition: Diabetic diet PPX: DVT - Heparin TID GI - Not indicated Deconditioning - PT ordered dispo: Telemetry; d/c planning pending MRA results Case discussed with Dr. Shirley Gary, DO - IM PGy-3
[2019-08-10] MEDS ORDERED: LACTATED RINGERS SOLUTION 1,000 ML/1,000 ML INFUS.BAG IV SCH (20:00)
[2019-08-10] MEDS: ROSUVASTATIN CA 20 MG TABLET (FP) PO SCH (21:18)
[2019-08-11] MEDS: HEPARIN NA (PORCINE) 5,000 UNITS/ML 1ML VIAL SQ SCH (06:04)
[2019-08-11] MEDS: INSULIN SLIDING SCALE (NOVOLOG) 1 VIAL SQ SCH ×2 (06:08→12:23)
[2019-08-11 07:30] LABS: CALCIUM 8.2 mg/dL (8.5-10.1); CREATININE 1.8 mg/dL (0.55-1.3); POTASSIUM 4.1 mmol/L (3.5-5.1)
[2019-08-11] MEDS ORDERED: ROSUVASTATIN CA 20 MG TABLET (FP) PO SCH (07:48)
--- NOTE | 2019-08-11 09:10 | PN ---
Progress Note (short form) - Note Progress Note: Neurology CHIEF COMPLAINT: Weakness, vertigo PCP: Dr. Corado HISTORY OF PRESENT ILLNESS: 68yo R-handed F with h/o of T2DM, HTN, HLD who presented for vertigo and Acute RUE weakness. Pt reported she had been experiencing vertigo episodes for about 1 -2 weeks, positional, with room spinning and unsteadiness, lasting 5 mins but able to return to her daily activities thereafter. On day of admission felt R arm/hand weakness. She reported she has had this for about 2-3 days and has had trouble holding coffee cups and other activites. Denied any fevers, cough, shortness of breath, blurry vision, word-finding difficulties, chest pain, palpitations, diarrhea, numbness/tingling, difficulties with coordination, trouble walking. She completed noncontrast head CT on admission which showed age indeterminate infarct. Overnight MRI of the brain was completed and demonstrated a punctate chronic left cerebellar infarct which she reports not being aware of. There was mild periventricular microvascular changes as well. I reassured her that there was no new infarcts noted and she does report taking aspirin 81 mg daily. Of note,carotid Dopplers demonstrated no evidence of high -grade stenosis in the left vertebral artery appeared patent however the right vertebral artery could not be visualized possibly due to basilar disease, hyperplasia, or technical factors. Patient is on statin and LDL 113. Spoke to resident after hours yesterday and as recommended by missile inspector, advised having MRA without contrast since creatinine remains an issue. MRA head and neck was completed overnight,, reviewed. No significant stenosis noted, dominant L vert per report and developmental venous anomaly noted. Patient reports remaining at baseline, reviewed echo which showed normal left ventricular function and ejection fraction. Active Medications Aspirin (Ecotrin -) 81 mg PO DAILY [facility] Last Admin: 08/10/19 09:05 Dose: 81 mg Heparin Sodium (Porcine) (Heparin -) 5,000 unit SQ TID [facility] Last Admin: 08/11/19 06:04 Dose: 5,000 unit Insulin Aspart (Novolog Vial Sliding Scale -) 1 vial SQ ACHS [facility]; Protocol Last Admin: 08/11/19 06:08 Dose: 2 unit Meclizine HCl (Antivert -) 12.5 mg PO Q6H PRN PRN Reason: VERTIGO Last Admin: 08/10/19 13:18 Dose: 12.5 mg Rosuvastatin Calcium (Crestor -) 40 mg PO HS [facility] PHYSICAL EXAMINATION Vital Signs Period Temp Pulse Resp BP Sys/Roldan Pulse Ox Last 24 Hr 97.7 F-98.9 F 81-94 18-20 131-161/74-87 99-99 Gen: Awake, alert, responds to questions appropriately Card: RRR, nml S1,S2 Resp: Normal symmetric effort, lungs clear to auscultation Abdomen: Soft, nontender, bowel sounds active Musculoskeletal: Adequate range of motion without significant deformity Head atraumatic and normocephalic CN: PERRL, EOMI intact, no apparent facial droop, no abnormalities in facial sensation, palate elevates, uvula and tongue midline Motor: Strength intact to confrontation in upper and lower extremities. Tone normal throughout Sensory: Intact to Temperature, light touch, and pinprick in all extremities Reflexes: 2+ biceps, brachioradialis, patellar, achillies Coordination: Intact on [id number] testing PSYCHIATRIC: Cooperative. Good eye contact. Appropriate mood and affect. SKIN: Warm, dry, normal turgor, no rashes or lesions noted CBCD WBC 8.4 K/mm3 (4.0-10.0) 08/09/19 12:30 RBC 4.04 M/mm3 (3.60-5.2) 08/09/19 12:30 Hgb 11.2 GM/dL (10.7-15.3) 08/09/19 12:30 Hct 33.7 % (32.4-45.2) 08/09/19 12:30 MCV 83.5 fl (80-96) 08/09/19 12:30 MCHC 33.3 g/dl (32.0-36.0) 08/09/19 12:30 RDW 14.3 % (11.6-15.6) 08/09/19 12:30 Plt Count 227 K/MM3 (134-434) 08/09/19 12:30 MPV 9.3 fl (7.5-11.1) 08/09/19 12:30 CMP Sodium 137 mmol/L (136-145) 08/11/19 06:15 Potassium 4.1 mmol/L (3.5-5.1) 08/11/19 06:15 Chloride 106 mmol/L (98-107) 08/11/19 06:15 Carbon Dioxide 25 mmol/L (21-32) 08/11/19 06:15 Anion Gap 7 MMOL/L (8-16) L 08/11/19 06:15 BUN 24.0 mg/dL (7-18) H 08/11/19 06:15 Creatinine 1.8 mg/dL (0.55-1.3) H 08/11/19 06:15 Random Glucose 220 mg/dL (74-106) H 08/11/19 06:15 Calcium 8.2 mg/dL (8.5-10.1) L 08/11/19 06:15 Total Bilirubin 0.3 mg/dL (0.2-1) 08/10/19 06:30 AST 18 U/L (15-37) 08/10/19 06:30 ALT 19 U/L (13-61) 08/10/19 06:30 Alkaline Phosphatase 62 U/L (45-117) 08/10/19 06:30 Total Protein 6.7 g/dl (6.4-8.2) 08/10/19 06:30 Albumin 3.0 g/dl (3.4-5.0) L 08/10/19 06:30 CARDIAC ENZYMES Troponin I < 0.02 ng/ml (0.00-0.05) 08/09/19 12:30 ASSESSMENT/PLAN: 68yo R-handed F with h/o of T2DM, HTN, HLD who presented for vertigo and Acute RUE weakness. Pt reported she had been experiencing vertigo episodes for about 1 -2 weeks, positional, with room spinning and unsteadiness, lasting 5 mins but able to return to her daily activities thereafter. On day of admission felt R arm/hand weakness. She reported she has had this for about 2-3 days and has had trouble holding coffee cups and other activites. She completed noncontrast head CT on admission which showed age indeterminate infarct. Overnight MRI of the brain was completed and demonstrated a punctate chronic left cerebellar infarct which she reports not being aware of. There was mild periventricular microvascular changes as well. I reassured her that there was no new infarcts noted and she does report taking aspirin 81 mg daily. Cerebellar infarct may be contributing to her crhonic dizziness. Her RUE strength is at baseline. Of note ,carotid Dopplers demonstrated no evidence of high-grade stenosis in the left vertebral artery appeared patent however the right vertebral artery could not be visualized possibly due to basilar disease, hyperplasia, or technical factors. CTA may be of benefit but renal function demonstrated elevated creatinine. Patient is on statin and LDL 113. RUE weakness improved and no deficits noted on exam. Imaging without acute changes and therefore can continue ASA 81mg from neuro standpoint. However, recommend input from vascular regarding vertebral imaging and if further antiplatelet or anticoagulation medication needed. MRA head and neck was completed overnight,, reviewed. No significant stenosis noted, dominant L vert per report and developmental venous anomaly noted. Patient reports remaining at baseline, reviewed echo which showed normal left ventricular function and ejection fraction. Consider vascular follow up. Echo completed and reviewed, normal left ventricular function and ejection fraction. Jordan continue current dose of statin for now but advised patient to have dietary modification and goal LDL is less than 100. Recheck LDL within 3 months. Monitor blood pressure, maintain normotensive range. Follow-up renal recommendations, Monitor BGM, AIC, maintain euglycemic range. Telemetry monitoring, cardiology follow-up.
[2019-08-11] MEDS: ASPIRIN COATED 81 MG TABLET.EC PO SCH (09:30)
[2019-08-11] MEDS ORDERED: POLYETHYLENE GLYCOL 3350 119 GM BTL PO ONE (09:51)
--- NOTE | 2019-08-11 10:11 | DS ---
Physical Exam: SUBJECTIVE: Patient seen and examined OBJECTIVE: Vital Signs Period Temp Pulse Resp BP Sys/Roldan Pulse Ox Last 24 Hr 97.7 F-98.9 F 81-94 20-20 131-161/74-91 99-99 PHYSICAL EXAM GENERAL: The patient is awake, alert, and fully oriented, in no acute distress. HEAD: Normal with no signs of trauma. EYES: PERRL, extraocular movements intact, sclera anicteric, conjunctiva clear. ENT: Ears normal, nares patent, oropharynx clear without exudates, moist mucous membranes. NECK: Trachea midline, full range of motion, supple. LUNGS: Breath sounds equal, clear to auscultation bilaterally, no wheezes, no crackles, no accessory muscle use. HEART: Regular rate and rhythm, S1, S2 without murmur, rub or gallop. ABDOMEN: Soft, nontender, nondistended, normoactive bowel sounds, no guarding, no rebound, no hepatosplenomegaly, no masses. EXTREMITIES: 2+ pulses, warm, well-perfused, no edema. NEUROLOGICAL: Cranial nerves II through XII grossly intact. Normal speech, gait not observed. PSYCH: Normal mood, normal affect. SKIN: Warm, dry, normal turgor, no rashes or lesions noted. LABS Laboratory Results - last 24 hr 08/10/19 08/10/19 08/10/19 14:15 18:05 21:19 Sodium Potassium Chloride Carbon Dioxide Anion Gap BUN Creatinine Est GFR (CKD-EPI)AfAm Est GFR (CKD-EPI)NonAf POC Glucometer 278 158 Random Glucose Calcium Ur Random Creatinine 32.0 08/11/19 08/11/19 08/11/19 06:06 06:15 11:21 Sodium 137 Potassium 4.1 Chloride 106 Carbon Dioxide 25 Anion Gap 7 L BUN 24.0 H Creatinine 1.8 H Est GFR (CKD-EPI)AfAm 32.71 Est GFR (CKD-EPI)NonAf 28.22 POC Glucometer 211 228 Random Glucose 220 H Calcium 8.2 L Ur Random Creatinine HOSPITAL COURSE: Date of Admission:08/09/19 Date of Discharge: 08/11/19 Minutes to complete discharge: 33 <Bryon Sandy - Last Filed: 08/11/19 11:48> Physical Exam: SUBJECTIVE: Pt feels improved without episodes of vertigo. OBJECTIVE: Vital Signs Period Temp Pulse Resp BP Sys/Roldan Pulse Ox Last 24 Hr 97.7 F-98.9 F 81-94 20-20 131-161/74-87 99 PHYSICAL EXAM GENERAL: Awake, alert, and fully oriented, in no acute distress. HEENT: NC/AT, EOMI without nystagmus, NICOLE, sclera anicteric, MMM NECK: No JVD, no masses, no thyromegaly, no carotid bruits appreciated LUNGS: CTA bilaterally. No wheezes, and no crackles. No accessory muscle use. HEART: RRR, normal S1 and S2 without murmur ABDOMEN: Soft, nontender, notdistended, normoactive bowel sounds EXTREMITIES: 2+ pulses, warm, no calf tenderness. No peripheral edema. NEUROLOGICAL: radiological technician II-XII intact. Strength 5/5 in all palma Babinski downgoing b/l Sensation intact throughout Normal speech. Gait not observed PSYCHIATRIC: Cooperative. Good eye contact. Appropriate mood and affect. SKIN: Warm, dry, normal turgor, no rashes LABS Laboratory Results - last 24 hr 08/10/19 08/10/19 08/10/19 10:48 14:15 18:05 Sodium Potassium Chloride Carbon Dioxide Anion Gap BUN Creatinine Est GFR (CKD-EPI)AfAm Est GFR (CKD-EPI)NonAf POC Glucometer 216 278 Random Glucose Calcium Ur Random Creatinine 32.0 08/10/19 08/11/19 08/11/19 21:19 06:06 06:15 Sodium 137 Potassium 4.1 Chloride 106 Carbon Dioxide 25 Anion Gap 7 L BUN 24.0 H Creatinine 1.8 H Est GFR (CKD-EPI)AfAm 32.71 Est GFR (CKD-EPI)NonAf 28.22 POC Glucometer 158 211 Random Glucose 220 H Calcium 8.2 L Ur Random Creatinine Active Medications Aspirin (Ecotrin -) 81 mg PO DAILY [facility] Last Admin: 08/11/19 09:30 Dose: 81 mg Heparin Sodium (Porcine) (Heparin -) 5,000 unit SQ TID [facility] Last Admin: 08/11/19 06:04 Dose: 5,000 unit Insulin Aspart (Novolog Vial Sliding Scale -) 1 vial SQ ACHS [facility]; Protocol Last Admin: 08/11/19 06:08 Dose: 2 unit Meclizine HCl (Antivert -) 12.5 mg PO Q6H PRN PRN Reason: VERTIGO Last Admin: 08/10/19 13:18 Dose: 12.5 mg Rosuvastatin Calcium (Crestor -) 10 mg PO HS [facility] Microbiology 08/09/19 12:30 Urine - Urine Clean Catch Urine Culture - Final Strep Agalactiae Group B Imaging: HOSPITAL COURSE: Date of Admission:08/09/19 Date of Discharge: 08/11/19 Final Diagnoses: Nonhemorrhagic lacunar infarct, age-indeterminate 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 on chronic kidney insufficiency Uncontrolled T2DM HTN HLD <Mustapha Gary - Last Filed: 08/12/19 08:04> Discharge Summary Problems reviewed: Yes Current Active Problems Dizziness (Acute) Right sided weakness (Acute) - Home Medications Comprehensive Discharge Medication List: Ambulatory Orders Aspirin [Aspirin EC] 81 mg PO DAILY 11/18/17 Cholecalciferol (Vitamin D3) [Vitamin D3] 2,000 unit PO DAILY 11/18/17 Dulaglutide [Trulicity] 1.5 mg SQ WEEKLY 11/18/17 Fenofibrate Nanocrystallized [Triglide] 160 mg PO DAILY 11/18/17 Icosapent Ethyl [Vascepa] 1 gm PO QID 11/18/17 Krill/Om-3/Dha/Epa/Phospho/Ast [Krill Oil 500 mg Softgel] 1 each PO DAILY Amlodipine Besylate [Norvasc -] 5 mg PO DAILY #30 tablet 08/11/19 Insulin Lispro [Humalog Kwikpen U-200] See Protocol SQ AC #1 cartridge 08/11/19 Meclizine HCl [Antivert -] 12.5 mg PO Q6H PRN #16 tablet 08/11/19 Rosuvastatin [Crestor -] 10 mg PO HS #30 tablet 08/11/19 <Bryon Sandy - Last Filed: 08/11/19 11:48> Problems reviewed: Yes Reason For Visit: DIZZINESS Current Active Problems Dizziness (Acute) Right sided weakness (Acute) - Home Medications Comprehensive Discharge Medication List: Ambulatory Orders Acarbose [Precose -] 25 mg PO TID 11/18/17 Aspirin [Aspirin EC] 81 mg PO DAILY 11/18/17 Cholecalciferol (Vitamin D3) [Vitamin D3] 2,000 unit PO DAILY 11/18/17 Dulaglutide [Trulicity] 1.5 mg SQ WEEKLY 11/18/17 Fenofibrate Nanocrystallized [Triglide] 160 mg PO DAILY 11/18/17 Glyburide/Metformin HCl [Glyburide-Metformin 5-500 mg] 1.5 each PO DAILY Hydrochlorothiazide [Hctz -] 12.5 mg PO DAILY 11/18/17 Icosapent Ethyl [Vascepa] 1 gm PO QID 11/18/17 Krill/Om-3/Dha/Epa/Phospho/Ast [Krill Oil 500 mg Softgel] 1 each PO DAILY Rosuvastatin Calcium 20 mg PO HS 11/18/17 Telmisartan [Micardis] 20 mg PO DAILY 11/18/17 Insulin Lispro [Humalog Kwikpen U-200] 10 - 28 units SQ AC 08/10/19 <Mustapha Gary - Last Filed: 08/12/19 08:04> Condition: Stable - Instructions Diet, Activity, Other Instructions: You were seen here for your dizziness. You were given medication to help and you had multiple tests performed to check if you had a stroke. One of your brain imaging (MRI) showed that you had a previous stroke which may be causing your dizziness. We also checked your arteries and did not see any clots in them. MEDICATIONS: You will be given Meclizine 12.5mg to take NEEDED every 6 hours for your dizziness Please continue on your home medications: Crestor 10mg nightly Aspirin 81mg daily Trulicity 1.5mg WEEKLY STOP taking your Glyburide-Metformin combination --You will be sent Metformin 500mg TWICE daily instead due to your kidney disease Fenofibrate 160mg daily STOP taking your HCTZ due to your kidney disease until otherwise specified by your doctors STOP taking Micardis again due to your kidney disease until otherwise specified by your doctors --You will be sent Norvasc 5mg DAILY for your blood pressure Follow-up: Please follow-up with Dr. Corado and let him test your kidney numbers again in 1 week Please follow-up with Dr. Arroyo due to a normal variance of your vertebral arteries Please follow-up with Dr. Daily for your vertigo and stroke history Referrals: Beto Corado MD [Primary Care Provider] - 1 Week Leonidas Daily MD [Staff Physician] - Jordon Arroyo MD [Staff Physician] - Disposition: HOME Attending Addendum I have seen and examined the indicated patient independently/along with the resident team. I have personally verified all walden exam findings and historical components. I have personally interpreted all diagnostics indicated per todays orders and reviewed interpretation of indicated subspecialty services. This patient meets a high level of medical complexity and warrants inpatient admission to avoid decompensation and worsening of the indicated illness. 60 minutes have been spent in the completion of this admission. S: Agree with historical findings as outlined in resident documentation regarding history of present illness. Feels well; dizziness improved and ready to go home. Noted that she has had persisting hyperglycemia inpatient and we are holding her PO sulfonylurea due to it being on beer's list on DC Placing her on 6U Lantus qAM and having teaching preformed for long acting prior to DC-this reflects her insulin requirements. 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 Resume prior home activity Low fat, low salt diet Counseled when to return to ER and verbalized understanding O: All vital signs reviewed per ER records and are as per EMR NAD, AAO, Resting in bed; mentating at baseline per prior encounters NC AT EOMI PERRLA Neck supple, trachea midline, no vish LN RRR s1/2 Lungs CTAB, w/ sym expansion NT ND +BS No skin breakdown or rashes noted CN2-12 wnl, no new focal deficits noted Muscle tone normal, no deficits in motor function or strength noted Normal mood, appropriate behavior, average insight MRI reviewed with chronic punctate left cerebellar infarction with periventricular microvascular changes noted. No new infarcts noted. MRA reviewed; Dr. Corado requestes OP followup with Dr. Arroyo per resident team. Will call and schedule appointment. Echo reviewed A/P: Patient seen, examined, and discussed in depth with resident team. Problem list reviewed per resident note and agree with their discussion aside from as supplemented by myself below. Problem list and hospital course accurate on resident note; in summation she presents for dizziness which is likely secondary to chronic left cerebellar infarcton. There was no new infarct noted. Neurology consultation recommended continuing aspirin. Crestor 10 with high LDL but low CrCl neuro advised same dose, same AC. Vertebral A. issues noted on prelim report and she will followup outpatient with her PCP referring her to vascular (we will call to facilitate appt). All her questions were answered and she has benefitted maximally from this hospitalization. 33 mins in planning for this DC. <Bryon Sandy - Last Filed: 08/11/19 11:48> ATTENDING PHYSICIAN STATEMENT I saw and evaluated the patient. I reviewed the resident's note and discussed the case with the resident. I agree with the resident's findings and plan as documented. SUBJECTIVE: OBJECTIVE: ASSESSMENT AND PLAN: <Mustapha Gary - Last Filed: 08/12/19 08:04>
[2019-08-11 10:15] VITALS: BP 155/91; PULSE 92; TEMP 98.5
[2019-08-11] MEDS ORDERED: ROSUVASTATIN CA 10 MG TABLET (FP) PO SCH (10:41)
[2019-08-11] MEDS ORDERED: amLODIPine BESYLATE 5 MG TABLET (FP) PO ONE (11:00)
== END 2019-08-11 12:26 | disposition home or self-care (01) | DRG 57 ==
LOC: JER 11:42 → JERBED 15:00 → J4W 19:11
PROVIDERS: ADMIT Internal Medicine; ATTEND Internal Medicine
DX: I69.398 Other sequelae of cerebral infarction (principal); N17.9 Acute kidney failure, unspecified; E11.22 Type 2 diabetes mellitus with diabetic chronic kidney disease; I12.9 Hypertensive chronic kidney disease with stage 1 through stage 4 chronic kidney disease, or unspecified chronic kidney disease; N18.3 Chronic kidney disease, stage 3 (moderate); R42 Dizziness and giddiness; E11.65 Type 2 diabetes mellitus with hyperglycemia; E78.5 Hyperlipidemia, unspecified; Z79.84 Long term (current) use of oral hypoglycemic drugs; Z79.4 Long term (current) use of insulin
CPT/HCPCS: 36415; 70450-TC; 70544-TC; 70547-TC; 70551-TC; 71046-TC-FY; 80048; 80053; 80061; 81003; 82565; 82962; 83036; 83721; 83735; 84100; 84484; 84540; 85025; 87077; 87086; 93005; 93010; 93306-TC; 93880-TC; 97116-GP; 97161-GP; 99283-25; J1644; J7030

== ENCOUNTER 2020-12-01 23:54 | Inpatient (IN) | payer OTHER ==
[2020-12-02 00:32] VITALS: BMI 28.9
[2020-12-02 00:33] LABS: BASO % 1.1 % (0-2.0); HEMATOCRIT 33.1 % (32.4-45.2); HEMOGLOBIN 10.9 GM/dL (10.7-15.3); LYMPH % 35.2 % (8-40); MCH 27.5 pg (25.7-33.7); MCHC 32.9 g/dl (32.0-36.0); MEAN CELL VOLUME 83.5 fl (80-96); MEAN PLT VOLUME 10.4 fl (7.5-11.1); MONO % 8.1 % (3.8-10.2); NEUT % 52.6 % (42.8-82.8); PLATELET COUNT 215 K/MM3 (134-434); RBC 3.96 M/mm3 (3.60-5.2); RDW 13.4 % (11.6-15.6); WHITE BLOOD COUNT 6.9 K/mm3 (4.0-10.0)
[2020-12-02 00:52] LABS: CHLORIDE 108 mmol/L (98-107); POTASSIUM 4.6 mmol/L (3.5-5.1); SODIUM 140 mmol/L (136-145)
[2020-12-02 00:54] LABS: ALBUMIN 3.4 g/dl (3.4-5.0); ANION GAP 6 MMOL/L (8-16); BLOOD UREA NITROGEN 39.7 mg/dL (7-18); CALCIUM 8.5 mg/dL (8.5-10.1); CO2 26 mmol/L (21-32)
[2020-12-02 00:55] LABS: GLUCOSE,RANDOM 190 mg/dL (74-106)
[2020-12-02 00:57] LABS: SGOT/AST 24 U/L (15-37); SGPT/ALT 22 U/L (13-61)
[2020-12-02 00:58] LABS: CREATININE 2.4 mg/dL (0.55-1.3)
[2020-12-02 00:59] LABS: BILIRUBIN,TOTAL 0.2 mg/dL (0.2-1); TOT PROT 7.9 g/dl (6.4-8.2)
[2020-12-02 01:00] LABS: ALK PHOS 67 U/L (45-117)
[2020-12-02 01:18] LABS: EPI CELLS 3 /uL (0-25.1); HYALINE CASTS 0 /uL (0-3.1); PH,URINE 6.5 (5.0-8.0); URINE APPEARANCE CLEAR; URINE BACTERIA 91 /uL (0-1359); URINE BILIRUBIN NEGATIVE (NEGATIVE); URINE COLOR YELLOW; URINE GLUCOSE (UA) 1+ (NEGATIVE); URINE KETONE NEGATIVE (NEGATIVE); URINE LEUK ESTERASE NEGATIVE (NEGATIVE); URINE NITRITE NEGATIVE (NEGATIVE); URINE PROTEIN 1+ (NEGATIVE); URINE RBC 1 /uL (0-23.9); URINE UROBILINOGEN 0.2 mg/dL (0.2-1.0); URINE WBC 1 /uL (0-25.8)
[2020-12-02 01:48] LABS: OPIATES, URI NEGATIVE ng/ml (CUTOFF=300); URINE BENZODIAZEPINES NEGATIVE ng/ml (CUTOFF=200)
[2020-12-02 01:49] LABS: PHENCYCLIDINE,URINE NEGATIVE ng/ml (CUTOFF=25)
[2020-12-02 02:03] LABS: COCAINE, UR NEGATIVE ng/ml (CUTOFF=300); METHADONE, UR NEGATIVE ng/ml (CUTOFF=300); URINE AMPHETAMINES NEGATIVE ng/ml (CUTOFF=500); URINE BARBITURATES NEGATIVE ng/ml (CUTOFF=200)
[2020-12-02] MEDS ORDERED: NALOXONE HCL 0.4 MG/ML VIAL IVPUSH ONE (04:20)
[2020-12-02] MEDS ORDERED: ACETAMINOPHEN 325 MG TABLET (FP) PO PRN (04:31)
[2020-12-02] MEDS ORDERED: ASPIRIN 300 MG SUPP.RECT RC ONE (04:37)
[2020-12-02] MEDS ORDERED: SODIUM CHLORIDE 500 ML IV STA (06:19)
[2020-12-02] MEDS: INSULIN SLIDING SCALE (NOVOLOG) 1 VIAL SQ SCH ×4 (06:55→22:14)
[2020-12-02] MEDS: HEPARIN NA (PORCINE) 5,000 UNITS/ML 1ML VIAL SQ SCH ×2 (06:55→14:55)
[2020-12-02] MEDS: SODIUM CHLORIDE 1,000 ML IV SCH (07:30)
[2020-12-02 07:38] LABS: HEMATOCRIT 34.3 % (32.4-45.2); HEMOGLOBIN 11.3 GM/dL (10.7-15.3); MCH 27.6 pg (25.7-33.7); MCHC 33.1 g/dl (32.0-36.0); MEAN CELL VOLUME 83.4 fl (80-96); MEAN PLT VOLUME 9.8 fl (7.5-11.1); PLATELET COUNT 212 K/MM3 (134-434); RBC 4.11 M/mm3 (3.60-5.2); RDW 13.4 % (11.6-15.6); WHITE BLOOD COUNT 7.8 K/mm3 (4.0-10.0)
[2020-12-02 07:56] LABS: POTASSIUM 4.6 mmol/L (3.5-5.1)
[2020-12-02 07:59] LABS: ALBUMIN 3.5 g/dl (3.4-5.0); BLOOD UREA NITROGEN 37.7 mg/dL (7-18); CALCIUM 8.7 mg/dL (8.5-10.1); MAGNESIUM 2.1 mg/dL (1.8-2.4)
[2020-12-02 08:02] LABS: CREATININE 2.2 mg/dL (0.55-1.3)
[2020-12-02 08:03] LABS: PHOSPHOROUS 4.4 mg/dL (2.5-4.9); TOT PROT 7.9 g/dl (6.4-8.2)
[2020-12-02 08:04] LABS: BILIRUBIN,TOTAL 0.3 mg/dL (0.2-1)
[2020-12-02] MEDS ORDERED: PT OWN MED DRAWER 7, Y5N ONE (09:53)
[2020-12-02] MEDS ORDERED: HEPARIN NA (PORCINE) 5,000 UNITS/ML 1ML VIAL IVPUSH ONE (18:39)
[2020-12-02] MEDS ORDERED: HEPARIN NA (PORCINE) 5,000 UNITS/ML 1ML VIAL IVPUSH PRN ×2 (18:42)
[2020-12-02] MEDS: HEPARIN SOD,PORK IN 0.45% NACL 25,000 UNIT/500 ML INFUS.BAG IVPB SCH (21:31)
[2020-12-02 22:08] LABS: ARTERIAL BLOOD GAS BASE EXCESS -5.8 mmol/L (-2-2); ARTERIAL BLOOD GAS PO2 83.2 mmHg (80-100); ARTERIAL BLOOD GAS pH 7.365 (7.350-7.450)
[2020-12-02] MEDS: ROSUVASTATIN CA 20 MG TABLET (FP) PO SCH (22:10)
[2020-12-03] MEDS: SODIUM CHLORIDE 1,000 ML IV SCH (06:47)
[2020-12-03] MEDS: INSULIN SLIDING SCALE (NOVOLOG) 1 VIAL SQ SCH ×4 (06:48→23:39)
[2020-12-03] MEDS ORDERED: ASPIRIN 300 MG SUPP.RECT RC SCH (10:00)
[2020-12-03] MEDS ORDERED: DEXTROSE 5%-0.45% SALINE 1,000 ML IV SCH (11:15)
[2020-12-03] MEDS: D5-1/2NS+20 MEQ KCL - 20 MEQ/1,000 ML INFUS.BAG IV SCH (16:12)
[2020-12-03] MEDS: ROSUVASTATIN CA 20 MG TABLET (FP) PO SCH (22:43)
[2020-12-03] MEDS: CHLORHEXIDINE GLUCONATE 4% CLEANSER FOR DECOLONIZATION TP SCH (22:43)
[2020-12-03] MEDS: MUPIROCIN 2% TOPICAL OINTMENT FOR DECOLONIZATION NS SCH (22:43)
[2020-12-03] MEDS: HEPARIN SOD,PORK IN 0.45% NACL 25,000 UNIT/500 ML INFUS.BAG IVPB SCH (23:00)
[2020-12-04] MEDS: INSULIN SLIDING SCALE (NOVOLOG) 1 VIAL SQ SCH ×4 (07:01→21:33)
[2020-12-04 07:09] LABS: HEMATOCRIT 33.7 % (32.4-45.2); HEMOGLOBIN 11.1 GM/dL (10.7-15.3); MCH 27.7 pg (25.7-33.7); MEAN CELL VOLUME 83.8 fl (80-96); MEAN PLT VOLUME 10.7 fl (7.5-11.1); PLATELET COUNT 216 K/MM3 (134-434); RBC 4.02 M/mm3 (3.60-5.2); RDW 13.3 % (11.6-15.6); WHITE BLOOD COUNT 10.2 K/mm3 (4.0-10.0)
[2020-12-04] MEDS: D5-1/2NS+20 MEQ KCL - 20 MEQ/1,000 ML INFUS.BAG IV SCH (11:48)
[2020-12-04] MEDS ORDERED: D5-1/2NS+20 MEQ KCL - 20 MEQ/1,000 ML INFUS.BAG IV SCH (12:08)
[2020-12-04] MEDS ORDERED: HEPARIN NA (PORCINE) 5,000 UNITS/ML 1ML VIAL IVPUSH PRN ×2 (12:08)
[2020-12-04] MEDS ORDERED: ACETAMINOPHEN 325 MG TABLET (FP) PO PRN (12:08)
[2020-12-04] MEDS: HEPARIN SOD,PORK IN 0.45% NACL 25,000 UNIT/500 ML INFUS.BAG IVPB SCH (14:19)
[2020-12-04] MEDS: amLODIPine BESYLATE 10 MG TABLET (FP) PO SCH (14:20)
[2020-12-04] MEDS ORDERED: CHLORHEXIDINE GLUCONATE 4% CLEANSER FOR DECOLONIZATION TP SCH (22:00)
[2020-12-05] MEDS: MUPIROCIN 2% TOPICAL OINTMENT FOR DECOLONIZATION NS SCH ×4 (01:07→17:21)
[2020-12-05] MEDS: ROSUVASTATIN CA 20 MG TABLET (FP) PO SCH ×2 (01:08→21:52)
[2020-12-05] MEDS: INSULIN SLIDING SCALE (NOVOLOG) 1 VIAL SQ SCH ×4 (07:03→22:03)
[2020-12-05] MEDS: amLODIPine BESYLATE 10 MG TABLET (FP) PO SCH (09:42)
[2020-12-05] MEDS ORDERED: ASPIRIN 300 MG SUPP.RECT RC SCH (10:00)
[2020-12-05 10:14] LABS: BASO % 0.8 % (0-2.0); EOS % 2.5 % (0-4.5); HEMATOCRIT 33.7 % (32.4-45.2); LYMPH % 26.6 % (8-40); MCH 27.5 pg (25.7-33.7); MCHC 32.6 g/dl (32.0-36.0); MEAN CELL VOLUME 84.5 fl (80-96); MONO % 6.8 % (3.8-10.2); NEUT % 63.3 % (42.8-82.8); PLATELET COUNT 201 K/MM3 (134-434); RBC 3.99 M/mm3 (3.60-5.2); RDW 13.3 % (11.6-15.6); WHITE BLOOD COUNT 7.7 K/mm3 (4.0-10.0)
[2020-12-05 10:17] LABS: HEMATOCRIT 34.5 % (32.4-45.2); HEMOGLOBIN 11.3 GM/dL (10.7-15.3); MCH 27.6 pg (25.7-33.7); MCHC 32.8 g/dl (32.0-36.0); MEAN CELL VOLUME 84.3 fl (80-96); MEAN PLT VOLUME 10.9 fl (7.5-11.1); PLATELET COUNT 200 K/MM3 (134-434); RBC 4.09 M/mm3 (3.60-5.2); RDW 13.5 % (11.6-15.6); WHITE BLOOD COUNT 7.7 K/mm3 (4.0-10.0)
[2020-12-05 10:41] LABS: POTASSIUM 4.6 mmol/L (3.5-5.1)
[2020-12-05 11:15] LABS: CALCIUM 8.8 mg/dL (8.5-10.1)
[2020-12-05 11:16] LABS: BLOOD UREA NITROGEN 20.2 mg/dL (7-18); MAGNESIUM 1.6 mg/dL (1.8-2.4)
[2020-12-05 11:18] LABS: CREATININE 1.9 mg/dL (0.55-1.3)
[2020-12-05 11:19] LABS: PHOSPHOROUS 4.7 mg/dL (2.5-4.9)
[2020-12-05 11:20] LABS: BILIRUBIN,TOTAL 0.8 mg/dL (0.2-1); TOT PROT 7.2 g/dl (6.4-8.2)
[2020-12-05] MEDS: HEPARIN SOD,PORK IN 0.45% NACL 25,000 UNIT/500 ML INFUS.BAG IVPB SCH (13:11)
[2020-12-05] MEDS: SODIUM BICARBONATE 650 MG TABLET PO SCH (13:11)
[2020-12-05] MEDS: D5-1/2NS+20 MEQ KCL - 20 MEQ/1,000 ML INFUS.BAG IV SCH (13:14)
[2020-12-05] MEDS: ASPIRIN 300 MG SUPP.RECT RC SCH ×3 (17:19→17:21)
[2020-12-05] MEDS: CHLORHEXIDINE GLUCONATE 4% CLEANSER FOR DECOLONIZATION TP SCH (17:20)
[2020-12-05] MEDS: MAGNESIUM SULF 50% (8.12 MEQ/2 ML-1 GM VIAL) IVPB SCH ×2 (18:25→20:12)
[2020-12-05] MEDS: ASPIRIN 81 MG CHEWABLE TABLETS PO SCH (18:25)
[2020-12-06] MEDS: HEPARIN SOD,PORK IN 0.45% NACL 25,000 UNIT/500 ML INFUS.BAG IVPB SCH ×2 (03:33→15:59)
[2020-12-06] MEDS: D5-1/2NS+20 MEQ KCL - 20 MEQ/1,000 ML INFUS.BAG IV SCH ×2 (06:40→11:59)
[2020-12-06] MEDS: INSULIN SLIDING SCALE (NOVOLOG) 1 VIAL SQ SCH ×4 (06:41→21:42)
[2020-12-06 08:11] LABS: BASO % 1.1 % (0-2.0); EOS % 4.3 % (0-4.5); HEMATOCRIT 33.6 % (32.4-45.2); LYMPH % 31.4 % (8-40); MCH 27.5 pg (25.7-33.7); MCHC 32.8 g/dl (32.0-36.0); MEAN PLT VOLUME 10.6 fl (7.5-11.1); MONO % 8.3 % (3.8-10.2); NEUT % 54.9 % (42.8-82.8); PLATELET COUNT 201 K/MM3 (134-434); RDW 13.6 % (11.6-15.6); WHITE BLOOD COUNT 5.9 K/mm3 (4.0-10.0)
[2020-12-06 08:29] LABS: POTASSIUM 5.1 mmol/L (3.5-5.1)
[2020-12-06 08:36] LABS: BLOOD UREA NITROGEN 21.1 mg/dL (7-18)
[2020-12-06 08:38] LABS: CALCIUM 8.8 mg/dL (8.5-10.1)
[2020-12-06 08:40] LABS: MAGNESIUM 2.3 mg/dL (1.8-2.4); PHOSPHOROUS 4.5 mg/dL (2.5-4.9)
[2020-12-06] MEDS ORDERED: PT OWN MED DRAWER 7, Y5N ONE (10:56)
[2020-12-06] MEDS: ASPIRIN 81 MG CHEWABLE TABLETS PO SCH (11:05)
[2020-12-06] MEDS: amLODIPine BESYLATE 10 MG TABLET (FP) PO SCH (11:05)
[2020-12-06] MEDS: SODIUM BICARBONATE 650 MG TABLET PO SCH (11:05)
[2020-12-06] MEDS: AMINO ACIDS 4.25%/D5W 1,000 ML IV SCH (21:26)
[2020-12-06] MEDS: ROSUVASTATIN CA 20 MG TABLET (FP) PO SCH (21:27)
[2020-12-07] MEDS: INSULIN SLIDING SCALE (NOVOLOG) 1 VIAL SQ SCH ×4 (06:09→21:45)
[2020-12-07] MEDS: HEPARIN SOD,PORK IN 0.45% NACL 25,000 UNIT/500 ML INFUS.BAG IVPB SCH ×2 (06:10→19:35)
[2020-12-07 07:28] LABS: HEMATOCRIT 33.7 % (32.4-45.2); MCH 27.5 pg (25.7-33.7); MCHC 32.7 g/dl (32.0-36.0); MEAN PLT VOLUME 10.6 fl (7.5-11.1); PLATELET COUNT 194 K/MM3 (134-434); RBC 4.01 M/mm3 (3.60-5.2); RDW 13.8 % (11.6-15.6); WHITE BLOOD COUNT 6.4 K/mm3 (4.0-10.0)
[2020-12-07] MEDS: SODIUM BICARBONATE 650 MG TABLET PO SCH (10:34)
[2020-12-07] MEDS: amLODIPine BESYLATE 10 MG TABLET (FP) PO SCH (10:34)
[2020-12-07] MEDS: ASPIRIN 81 MG CHEWABLE TABLETS PO SCH (10:34)
[2020-12-07 10:58] LABS: POTASSIUM 4.8 mmol/L (3.5-5.1)
[2020-12-07 10:59] LABS: BLOOD UREA NITROGEN 21.7 mg/dL (7-18)
[2020-12-07 11:03] LABS: CREATININE 1.9 mg/dL (0.55-1.3); MAGNESIUM 1.9 mg/dL (1.8-2.4)
[2020-12-07] MEDS: AMINO ACIDS 4.25%/D5W 1,000 ML IV SCH (19:36)
[2020-12-07] MEDS: ROSUVASTATIN CA 20 MG TABLET (FP) PO SCH (21:48)
[2020-12-07] MEDS: hydrALAZINE HCL 10 MG TABLET PO SCH (21:48)
[2020-12-08] MEDS: INSULIN SLIDING SCALE (NOVOLOG) 1 VIAL SQ SCH ×4 (06:34→21:54)
[2020-12-08 07:40] LABS: HEMATOCRIT 34.7 % (32.4-45.2); HEMOGLOBIN 11.6 GM/dL (10.7-15.3); MCHC 33.6 g/dl (32.0-36.0); MEAN CELL VOLUME 83.4 fl (80-96); MEAN PLT VOLUME 10.3 fl (7.5-11.1); PLATELET COUNT 228 K/MM3 (134-434); RBC 4.15 M/mm3 (3.60-5.2); RDW 13.3 % (11.6-15.6); WHITE BLOOD COUNT 7.4 K/mm3 (4.0-10.0)
[2020-12-08 07:47] LABS: CALCIUM 9.2 mg/dL (8.5-10.1)
[2020-12-08 07:48] LABS: BLOOD UREA NITROGEN 30.2 mg/dL (7-18); POTASSIUM 4.8 mmol/L (3.5-5.1)
[2020-12-08 07:51] LABS: CREATININE 1.9 mg/dL (0.55-1.3)
[2020-12-08] MEDS: amLODIPine BESYLATE 10 MG TABLET (FP) PO SCH (09:28)
[2020-12-08] MEDS: SODIUM BICARBONATE 650 MG TABLET PO SCH (09:28)
[2020-12-08] MEDS: ASPIRIN 81 MG CHEWABLE TABLETS PO SCH (09:28)
[2020-12-08] MEDS: hydrALAZINE HCL 10 MG TABLET PO SCH ×2 (09:28→21:55)
[2020-12-08] MEDS: HEPARIN SOD,PORK IN 0.45% NACL 25,000 UNIT/500 ML INFUS.BAG IVPB SCH (12:13)
[2020-12-08] MEDS ORDERED: BISACODYL 10 MG SUPP.RECT PR ONE (13:41)
[2020-12-08] MEDS ORDERED: ATENOLOL 25 MG TABLET (FP) PO SCH (14:15)
[2020-12-08 15:32] LABS: ALLENS TEST POSITIVE; ARTERIAL BLD GAS O2 SATURATION 98.2 mmHg (95-98); ARTERIAL BLOOD GAS BASE EXCESS -6.9 mmol/L (-2-2); ARTERIAL BLOOD GAS pH 7.301 (7.350-7.450)
[2020-12-08 16:25] LABS: EPI CELLS >36 /uL (0-25.1); HYALINE CASTS 166 /uL (0-3.1); PH,URINE 5.5 (5.0-8.0); URINE APPEARANCE TURBID; URINE BACTERIA 2266 /uL (0-1359); URINE BILIRUBIN NEGATIVE (NEGATIVE); URINE COLOR YELLOW; URINE GLUCOSE (UA) TRACE (NEGATIVE); URINE KETONE NEGATIVE (NEGATIVE); URINE LEUK ESTERASE 3+ (NEGATIVE); URINE NITRITE NEGATIVE (NEGATIVE); URINE PROTEIN 3+ (NEGATIVE); URINE UROBILINOGEN 0.2 mg/dL (0.2-1.0); URINE WBC 23280 /uL (0-25.8)
[2020-12-08] MEDS ORDERED: SODIUM CHLORIDE 1,000 ML IV SCH (16:30)
[2020-12-08] MEDS: AMINO ACIDS 4.25%/D5W 1,000 ML IV SCH (17:30)
[2020-12-08 18:28] LABS: URINE RBC 549.4 /uL (0-23.9); YEAST NEGATIVE (NEGATIVE)
[2020-12-08] MEDS ORDERED: CEFTRIAXONE 1 GM in DEXTROSE 5%-WATER - 50 ML IVPB SCH (20:30)
[2020-12-08] MEDS ORDERED: DEXTROSE 5%-WATER - 50 ML IVPB ONE (21:14)
[2020-12-08] MEDS ORDERED: cefTRIAXone SODIUM 1 GM VIAL ONE (21:14)
[2020-12-08 21:39] VITALS: BP 112/57; PULSE 74; TEMP 99
[2020-12-08] MEDS: ROSUVASTATIN CA 20 MG TABLET (FP) PO SCH (21:54)
== END 2020-12-08 22:45 | disposition short-term general hospital (02) | DRG 64 ==
LOC: JER 23:54 → JERBED 12-02 02:24 → J4W 12-02 06:32 → JICU 12-03 00:15 → J4S 12-04 13:15
PROVIDERS: ADMIT Internal Medicine; ATTEND Nurse Practitioner Family
DX: I63.00 Cerebral infarction due to thrombosis of unspecified precerebral artery (principal); G92 Toxic encephalopathy; G93.6 Cerebral edema; N18.4 Chronic kidney disease, stage 4 (severe); N17.9 Acute kidney failure, unspecified; G91.1 Obstructive hydrocephalus; N39.0 Urinary tract infection, site not specified; G81.91 Hemiplegia, unspecified affecting right dominant side; E78.5 Hyperlipidemia, unspecified; Z79.4 Long term (current) use of insulin; I12.9 Hypertensive chronic kidney disease with stage 1 through stage 4 chronic kidney disease, or unspecified chronic kidney disease; E11.22 Type 2 diabetes mellitus with diabetic chronic kidney disease; N18.9 Chronic kidney disease, unspecified; R29.703 NIHSS score 3; R13.10 Dysphagia, unspecified
CPT/HCPCS: 36415; 36600; 70450-TC; 70544-TC; 70551-TC; 71045-TC-FY; 80048; 80053; 80061; 80307; 81003; 82140; 82728; 82803; 82962; 83036; 83540; 83550; 83605; 83721; 83735; 84100; 84436; 84443; 84484; 85025; 85027; 85730; 86900; 87040; 87077; 87086; 93005; 93010; 93306-TC; 93880-TC; 97116-GP; 97161-GP; 99285-25; C9803; J1644; U0003

== ENCOUNTER 2021-03-16 22:12 | Inpatient (IN) | payer OTHER ==
[2021-03-16] MEDS ORDERED: MECLIZINE HCL 25 MG TABLET (FP) PO ONE (22:56)
[2021-03-16] MEDS ORDERED: MECLIZINE HCL 25 MG TABLET (FP) ONE (23:01)
[2021-03-16 23:11] LABS: BASO % 0.8 % (0-2.0); EOS % 2.7 % (0-4.5); HEMATOCRIT 34.5 % (32.4-45.2); HEMOGLOBIN 11.5 GM/dL (10.7-15.3); LYMPH % 19.8 % (8-40); MCH 28.9 pg (25.7-33.7); MCHC 33.4 g/dl (32.0-36.0); MEAN CELL VOLUME 86.4 fl (80-96); MEAN PLT VOLUME 10.3 fl (7.5-11.1); MONO % 4.9 % (3.8-10.2); NEUT % 71.8 % (42.8-82.8); PLATELET COUNT 166 K/MM3 (134-434); RBC 3.99 M/mm3 (3.60-5.2); RDW 13.8 % (11.6-15.6); WHITE BLOOD COUNT 10.7 K/mm3 (4.0-10.0)
[2021-03-16 23:19] LABS: INR 0.98 (0.83-1.09); PROTHROMBIN TIME (PATIENT) 12.1 SEC (9.7-13.0)
[2021-03-16 23:23] LABS: ACTIVATED PTT 29.7 SECONDS (25.2-36.5)
[2021-03-16 23:28] LABS: CHLORIDE 109 mmol/L (98-107); SODIUM 140 mmol/L (136-145)
[2021-03-16 23:32] LABS: CALCIUM 8.8 mg/dL (8.5-10.1)
[2021-03-16 23:33] LABS: ALBUMIN 3.7 g/dl (3.4-5.0); ANION GAP 7 MMOL/L (8-16); BLOOD UREA NITROGEN 40.4 mg/dL (7-18); CO2 23 mmol/L (21-32); GLUCOSE,RANDOM 119 mg/dL (74-106)
[2021-03-16 23:36] LABS: CREATININE 1.9 mg/dL (0.55-1.3); SGOT/AST 58 U/L (15-37); SGPT/ALT 43 U/L (13-61)
[2021-03-16 23:37] LABS: BILIRUBIN,TOTAL 0.4 mg/dL (0.2-1)
[2021-03-16 23:39] LABS: ALK PHOS 117 U/L (45-117)
[2021-03-16 23:50] LABS: PHOSPHOROUS 4.5 mg/dL (2.5-4.9)
[2021-03-17 05:47] LABS: EPI CELLS 7 /uL (0-25.1); HYALINE CASTS 1 /uL (0-3.1); URINE APPEARANCE CLOUDY; URINE BACTERIA >9,000 /uL (0-1359); URINE BILIRUBIN NEGATIVE (NEGATIVE); URINE COLOR YELLOW; URINE GLUCOSE (UA) NEGATIVE (NEGATIVE); URINE KETONE NEGATIVE (NEGATIVE); URINE LEUK ESTERASE 2+ (NEGATIVE); URINE NITRITE NEGATIVE (NEGATIVE); URINE PROTEIN 3+ (NEGATIVE); URINE RBC 6 /uL (0-23.9); URINE UROBILINOGEN 0.2 mg/dL (0.2-1.0); URINE WBC 464 /uL (0-25.8)
[2021-03-17] MEDS ORDERED: ASPIRIN 325 MG TABLET PO ONE (06:18)
[2021-03-17] MEDS ORDERED: HEPARIN NA (PORCINE) 5,000 UNITS/ML 1ML VIAL ONE (06:30)
[2021-03-17] MEDS ORDERED: ASPIRIN 325 MG ENTERIC COATED TABLET (FP) ONE (06:30)
[2021-03-17] MEDS: HEPARIN NA (PORCINE) 5,000 UNITS/ML 1ML VIAL SQ SCH ×3 (06:45→21:12)
[2021-03-17] MEDS ORDERED: CEFTRIAXONE 1,000 MG in DEXTROSE 5%-WATER - 50 ML IVPB ONE (06:59)
[2021-03-17] MEDS ORDERED: CEFTRIAXONE 1 GM/50 ML BAG ONE (07:10)
[2021-03-17] MEDS: INSULIN SLIDING SCALE (NOVOLOG) 1 VIAL SQ SCH ×4 (08:31→21:12)
[2021-03-17 08:42] LABS: BASO % 0.4 % (0-2.0); EOS % 0.2 % (0-4.5); HEMATOCRIT 34.1 % (32.4-45.2); HEMOGLOBIN 11.2 GM/dL (10.7-15.3); LYMPH % 11.4 % (8-40); MCH 28.7 pg (25.7-33.7); MCHC 32.8 g/dl (32.0-36.0); MEAN CELL VOLUME 87.4 fl (80-96); MEAN PLT VOLUME 11.2 fl (7.5-11.1); MONO % 2.9 % (3.8-10.2); NEUT % 85.1 % (42.8-82.8); PLATELET COUNT 159 K/MM3 (134-434); RDW 13.7 % (11.6-15.6); WHITE BLOOD COUNT 9.6 K/mm3 (4.0-10.0)
[2021-03-17 09:05] LABS: ALBUMIN 3.5 g/dl (3.4-5.0); BLOOD UREA NITROGEN 38.2 mg/dL (7-18)
[2021-03-17] MEDS ORDERED: ASPIRIN 81 MG CHEWABLE TABLETS ONE (09:07)
[2021-03-17 09:08] LABS: CREATININE 1.8 mg/dL (0.55-1.3)
[2021-03-17 09:09] LABS: PHOSPHOROUS 4.6 mg/dL (2.5-4.9)
[2021-03-17 09:10] LABS: BILIRUBIN,TOTAL 0.3 mg/dL (0.2-1)
[2021-03-17] MEDS: ASPIRIN COATED 81 MG TABLET.EC PO SCH (09:13)
[2021-03-17] MEDS ORDERED: amLODIPine BESYLATE 10 MG TABLET (FP) PO SCH (10:00)
[2021-03-17 10:24] VITALS: BMI 23.8
[2021-03-17] MEDS: SODIUM CHLORIDE 0.45% 1,000 ML IV SCH (17:08)
[2021-03-17] MEDS: MECLIZINE HCL 12.5 MG TABLET PO PRN (21:12)
[2021-03-17] MEDS ORDERED: ROSUVASTATIN CA 20 MG TABLET (FP) PO SCH (22:00)
[2021-03-18] MEDS: HEPARIN NA (PORCINE) 5,000 UNITS/ML 1ML VIAL SQ SCH ×3 (05:35→21:20)
[2021-03-18] MEDS: INSULIN SLIDING SCALE (NOVOLOG) 1 VIAL SQ SCH ×4 (06:31→21:20)
[2021-03-18] MEDS ORDERED: DEXTROSE 5%-WATER - 50 ML IVPB ONE (09:10)
[2021-03-18] MEDS ORDERED: cefTRIAXone SODIUM 1 GM VIAL ONE (09:10)
[2021-03-18] MEDS: CEFTRIAXONE 1 GM in DEXTROSE 5%-WATER - 50 ML IVPB SCH (09:13)
[2021-03-18] MEDS: ASPIRIN COATED 81 MG TABLET.EC PO SCH (09:13)
[2021-03-18] MEDS ORDERED: HYDROCHLOROTHIAZIDE 25 MG TABLET (FP) PO SCH (11:15)
[2021-03-18] MEDS ORDERED: LABETALOL HCL 100 MG TABLET (FP) PO SCH (11:15)
[2021-03-18] MEDS: SODIUM CHLORIDE 0.45% 1,000 ML IV SCH ×2 (14:28→17:59)
[2021-03-18] MEDS ORDERED: INSULIN (NOVOLOG) ASPART 100 UNITS/ML 10ML VIAL ONE (21:09)
[2021-03-18] MEDS: ATORVASTATIN CA 80 MG TABLET (FP) PO SCH (21:19)
[2021-03-18] MEDS: MECLIZINE HCL 12.5 MG TABLET PO PRN (22:54)
[2021-03-18] MEDS: QUEtiapine FUMARATE 25 MG TABLET PO PRN (22:54)
[2021-03-19] MEDS: HEPARIN NA (PORCINE) 5,000 UNITS/ML 1ML VIAL SQ SCH ×3 (06:21→23:56)
[2021-03-19] MEDS: INSULIN SLIDING SCALE (NOVOLOG) 1 VIAL SQ SCH ×4 (06:21→23:57)
[2021-03-19 08:44] LABS: HEMATOCRIT 33.4 % (32.4-45.2); HEMOGLOBIN 11.3 GM/dL (10.7-15.3); MCHC 33.7 g/dl (32.0-36.0); MEAN CELL VOLUME 86.1 fl (80-96); MEAN PLT VOLUME 10.3 fl (7.5-11.1); PLATELET COUNT 160 K/MM3 (134-434); RBC 3.88 M/mm3 (3.60-5.2); RDW 13.4 % (11.6-15.6); WHITE BLOOD COUNT 8.4 K/mm3 (4.0-10.0)
[2021-03-19 09:19] LABS: ALBUMIN 3.3 g/dl (3.4-5.0); CALCIUM 8.4 mg/dL (8.5-10.1)
[2021-03-19 09:20] LABS: BLOOD UREA NITROGEN 29.2 mg/dL (7-18)
[2021-03-19 09:22] LABS: CREATININE 1.6 mg/dL (0.55-1.3)
[2021-03-19 09:24] LABS: BILIRUBIN,TOTAL 0.4 mg/dL (0.2-1); TOT PROT 7.2 g/dl (6.4-8.2)
[2021-03-19] MEDS ORDERED: DEXTROSE 5%-WATER - 50 ML IVPB ONE (09:44)
[2021-03-19] MEDS ORDERED: cefTRIAXone SODIUM 1 GM VIAL ONE (09:44)
[2021-03-19] MEDS ORDERED: PT OWN MED DRAWER 7, Y5N ONE (09:45)
[2021-03-19] MEDS: CEFTRIAXONE 1 GM in DEXTROSE 5%-WATER - 50 ML IVPB SCH (09:47)
[2021-03-19] MEDS: ASPIRIN COATED 81 MG TABLET.EC PO SCH (09:48)
[2021-03-19] MEDS: HYDROCHLOROTHIAZIDE 25 MG TABLET (FP) PO SCH (09:48)
[2021-03-19] MEDS: VITAMIN B COMP W-C 1 EA TABLET (NEPHRO-VITE) PO SCH (09:48)
[2021-03-19] MEDS: AMANTADINE HCL 100MG/10 ML UNIT DOSE CUPS PO SCH (09:49)
[2021-03-19] MEDS ORDERED: LABETALOL HCL 100 MG TABLET (FP) PO SCH (10:00)
[2021-03-19] MEDS: SODIUM CHLORIDE 0.45% 1,000 ML IV SCH (16:42)
[2021-03-19] MEDS ORDERED: INSULIN (NOVOLOG) ASPART 100 UNITS/ML 10ML VIAL ONE ×2 (16:58→19:48)
[2021-03-19] MEDS: ATORVASTATIN CA 80 MG TABLET (FP) PO SCH (23:56)
[2021-03-20] MEDS: SODIUM CHLORIDE 0.45% 1,000 ML IV SCH (00:09)
[2021-03-20] MEDS: INSULIN SLIDING SCALE (NOVOLOG) 1 VIAL SQ SCH ×4 (07:09→22:23)
[2021-03-20] MEDS: HEPARIN NA (PORCINE) 5,000 UNITS/ML 1ML VIAL SQ SCH ×3 (07:09→22:45)
[2021-03-20] MEDS ORDERED: PT OWN MED DRAWER 7, Y5N ONE (09:51)
[2021-03-20] MEDS: ASPIRIN COATED 81 MG TABLET.EC PO SCH (10:09)
[2021-03-20] MEDS: VITAMIN B COMP W-C 1 EA TABLET (NEPHRO-VITE) PO SCH (10:09)
[2021-03-20] MEDS: HYDROCHLOROTHIAZIDE 25 MG TABLET (FP) PO SCH (10:09)
[2021-03-20] MEDS: LABETALOL HCL 100 MG TABLET (FP) PO SCH ×2 (10:09→22:44)
[2021-03-20] MEDS: AMANTADINE HCL 100MG/10 ML UNIT DOSE CUPS PO SCH (10:10)
[2021-03-20] MEDS ORDERED: MECLIZINE HCL 25 MG TABLET (FP) PO PRN (11:25)
[2021-03-20] MEDS: CLOPIDOGREL BISULFATE 75 MG TABLET (FP) PO SCH (15:17)
[2021-03-20] MEDS: QUEtiapine FUMARATE 25 MG TABLET PO PRN (22:44)
[2021-03-20] MEDS: ATORVASTATIN CA 80 MG TABLET (FP) PO SCH (22:44)
[2021-03-21] MEDS: HEPARIN NA (PORCINE) 5,000 UNITS/ML 1ML VIAL SQ SCH ×2 (07:19→14:13)
[2021-03-21] MEDS: INSULIN SLIDING SCALE (NOVOLOG) 1 VIAL SQ SCH ×3 (07:19→17:12)
[2021-03-21] MEDS: VITAMIN B COMP W-C 1 EA TABLET (NEPHRO-VITE) PO SCH (09:13)
[2021-03-21] MEDS: ASPIRIN COATED 81 MG TABLET.EC PO SCH (09:13)
[2021-03-21] MEDS: CLOPIDOGREL BISULFATE 75 MG TABLET (FP) PO SCH (09:13)
[2021-03-21] MEDS: HYDROCHLOROTHIAZIDE 25 MG TABLET (FP) PO SCH (09:13)
[2021-03-21] MEDS: LABETALOL HCL 100 MG TABLET (FP) PO SCH (09:13)
[2021-03-21] MEDS: AMANTADINE HCL 100MG/10 ML UNIT DOSE CUPS PO SCH (09:14)
[2021-03-21] MEDS ORDERED: LISINOPRIL 5 MG TABLET PO SCH (10:00)
[2021-03-21 10:02] LABS: BLOOD UREA NITROGEN 19.9 mg/dL (7-18); CALCIUM 8.7 mg/dL (8.5-10.1)
[2021-03-21 10:03] LABS: MAGNESIUM 1.8 mg/dL (1.8-2.4)
[2021-03-21 10:28] LABS: CREATININE 1.6 mg/dL (0.55-1.3)
[2021-03-21 14:44] VITALS: BP 118/66; PULSE 74; TEMP 98.4
== END 2021-03-21 18:57 | disposition home or self-care (01) | DRG 57 ==
LOC: JER 22:12 → JERBED 03-17 05:19 → J6S 03-17 09:46
PROVIDERS: ADMIT Hospitalist; ATTEND Internal Medicine
DX: G23.1 Progressive supranuclear ophthalmoplegia [Steele-Richardson-Olszewski] (principal); N39.0 Urinary tract infection, site not specified; N18.4 Chronic kidney disease, stage 4 (severe); E11.22 Type 2 diabetes mellitus with diabetic chronic kidney disease; I12.9 Hypertensive chronic kidney disease with stage 1 through stage 4 chronic kidney disease, or unspecified chronic kidney disease; E78.5 Hyperlipidemia, unspecified; R68.0 Hypothermia, not associated with low environmental temperature; I25.10 Atherosclerotic heart disease of native coronary artery without angina pectoris; E11.40 Type 2 diabetes mellitus with diabetic neuropathy, unspecified; G20 Parkinson's disease; Z79.4 Long term (current) use of insulin
CPT/HCPCS: 36415; 70450-TC; 70551-TC; 71045-TC-FY; 74230-TC-FY; 80048; 80053; 80061; 81003; 82550; 82962; 83036; 83721; 83735; 84100; 84484; 85025; 85027; 85610; 85730; 87086; 92611-GN; 93005; 93010; 97116-GP; 97162-GP; 99285-25; C9803; J1644; U0003; U0005

== ENCOUNTER 2022-06-27 19:27 | Inpatient (IN) | payer OTHER ==
[2022-06-27 20:40] LABS: BASO % 1.1 % (0-2.0); HEMATOCRIT 31.7 % (32.4-45.2); HEMOGLOBIN 10.4 GM/dL (10.7-15.3); MCH 28.6 pg (25.7-33.7); MCHC 32.7 g/dl (32.0-36.0); MEAN CELL VOLUME 87.5 fl (80-96); MONO % 8.2 % (3.8-10.2); NEUT % 53.7 % (42.8-82.8); PLATELET COUNT 154 10^3/uL (134-434); RBC 3.63 M/mm3 (3.60-5.2); RDW 13.1 % (11.6-15.6); WHITE BLOOD COUNT 5.6 K/mm3 (4.0-10.0)
[2022-06-27 20:47] LABS: INR 0.95 (0.83-1.09); PROTHROMBIN TIME (PATIENT) 10.9 SEC (9.7-13.0)
[2022-06-27 20:50] LABS: ACTIVATED PTT 22.5 SECONDS (25.2-36.5)
[2022-06-27 21:08] LABS: CALCIUM 8.1 mg/dL (8.5-10.1)
[2022-06-27 21:09] LABS: ALBUMIN 2.9 g/dl (3.4-5.0); BLOOD UREA NITROGEN 30.1 mg/dL (7-18)
[2022-06-27 21:12] LABS: CREATININE 2.2 mg/dL (0.55-1.3)
[2022-06-27 21:13] LABS: BILIRUBIN,TOTAL 0.2 mg/dL (0.2-1); TOT PROT 6.8 g/dl (6.4-8.2)
[2022-06-27] MEDS ORDERED: SODIUM CHLORIDE 0.9% 500 ML INFUS.BAG IV ONE (21:21)
[2022-06-27] MEDS ORDERED: HEPARIN NA (PORCINE) 5,000 UNITS/ML 1ML VIAL IVPUSH PRN ×2 (21:59)
[2022-06-27] MEDS ORDERED: HEPARIN NA (PORCINE) 5,000 UNITS/ML 1ML VIAL ONE (22:45)
[2022-06-27] MEDS ORDERED: HEPARIN INFUSION - 25,000 UNITS/500 ML INFUS.BAG IVPB ONE (22:45)
[2022-06-27] MEDS: HEPARIN INFUSION - 25,000 UNITS/500 ML INFUS.BAG IVPB SCH (23:00)
[2022-06-28] MEDS: INSULIN SLIDING SCALE (NOVOLOG) 1 VIAL SQ SCH ×3 (06:12→17:13)
[2022-06-28 08:09] LABS: BASO % 0.8 % (0-2.0); EOS % 2.5 % (0-4.5); HEMATOCRIT 32.7 % (32.4-45.2); HEMOGLOBIN 10.7 GM/dL (10.7-15.3); MCH 28.7 pg (25.7-33.7); MCHC 32.9 g/dl (32.0-36.0); MEAN CELL VOLUME 87.2 fl (80-96); MEAN PLT VOLUME 10.3 fl (7.5-11.1); MONO % 7.3 % (3.8-10.2); NEUT % 55.4 % (42.8-82.8); PLATELET COUNT 161 10^3/uL (134-434); RBC 3.75 M/mm3 (3.60-5.2); RDW 13.4 % (11.6-15.6); WHITE BLOOD COUNT 6.7 K/mm3 (4.0-10.0)
[2022-06-28] MEDS ORDERED: SODIUM CHLORIDE 1,000 ML IV SCH ×2 (08:15→13:00)
[2022-06-28 09:34] LABS: CALCIUM 8.2 mg/dL (8.5-10.1)
[2022-06-28 09:35] LABS: ALBUMIN 2.9 g/dl (3.4-5.0)
[2022-06-28 09:39] LABS: TOT PROT 6.6 g/dl (6.4-8.2)
[2022-06-28 09:49] LABS: BILIRUBIN,TOTAL 0.3 mg/dL (0.2-1); BLOOD UREA NITROGEN 30.3 mg/dL (7-18); CREATININE 2.1 mg/dL (0.55-1.3); MAGNESIUM 1.9 mg/dL (1.8-2.4); PHOSPHOROUS 4.3 mg/dL (2.5-4.9)
[2022-06-28] MEDS ORDERED: LABETALOL HCL 100 MG TABLET (FP) PO SCH (10:00)
[2022-06-28] MEDS: LISINOPRIL 5 MG TABLET PO SCH (10:03)
[2022-06-28] MEDS: VITAMIN B COMP W-C 1 EA TABLET (NEPHRO-VITE) PO SCH (10:03)
[2022-06-28] MEDS: LABETALOL HCL 100 MG TABLET (FP) PO SCH ×2 (10:03→21:38)
[2022-06-28] MEDS: HYDROCHLOROTHIAZIDE 25 MG TABLET (FP) PO SCH (10:04)
[2022-06-28] MEDS ORDERED: INSULIN (NOVOLOG) ASPART 100 UNITS/ML 10ML VIAL ONE (17:11)
[2022-06-28] MEDS: ATORVASTATIN CA 80 MG TABLET (FP) PO SCH (21:38)
[2022-06-28] MEDS: HEPARIN INFUSION - 25,000 UNITS/500 ML INFUS.BAG IVPB SCH (22:36)
[2022-06-28 23:03] LABS: EPI CELLS >36 /uL (0-25.1); HYALINE CASTS 2 /uL (0-3.1); URINE APPEARANCE CLEAR; URINE BACTERIA 3179 /uL (0-1359); URINE BILIRUBIN NEGATIVE (NEGATIVE); URINE COLOR YELLOW; URINE GLUCOSE (UA) 1+ (NEGATIVE); URINE KETONE NEGATIVE (NEGATIVE); URINE LEUK ESTERASE 2+ (NEGATIVE); URINE NITRITE NEGATIVE (NEGATIVE); URINE PROTEIN 2+ (NEGATIVE); URINE RBC 7 /uL (0-23.9); URINE UROBILINOGEN 0.2 mg/dL (0.2-1.0); URINE WBC 246 /uL (0-25.8)
[2022-06-29] MEDS: INSULIN SLIDING SCALE (NOVOLOG) 1 VIAL SQ SCH ×4 (06:06→21:52)
[2022-06-29] MEDS ORDERED: INSULIN SLIDING SCALE (NOVOLOG) 1 VIAL SQ SCH (07:00)
[2022-06-29 08:47] LABS: HEMATOCRIT 30.6 % (32.4-45.2); HEMOGLOBIN 9.9 GM/dL (10.7-15.3); MCH 28.4 pg (25.7-33.7); MCHC 32.5 g/dl (32.0-36.0); MEAN CELL VOLUME 87.3 fl (80-96); MEAN PLT VOLUME 9.8 fl (7.5-11.1); PLATELET COUNT 150 10^3/uL (134-434); RDW 13.1 % (11.6-15.6); WHITE BLOOD COUNT 6.6 K/mm3 (4.0-10.0)
[2022-06-29 09:09] LABS: BLOOD UREA NITROGEN 24.3 mg/dL (7-18); CALCIUM 7.9 mg/dL (8.5-10.1)
[2022-06-29] MEDS ORDERED: INSULIN (NOVOLOG) ASPART 100 UNITS/ML 10ML VIAL ONE (09:22)
[2022-06-29] MEDS: CLOPIDOGREL BISULFATE 75 MG TABLET (FP) PO SCH (10:14)
[2022-06-29] MEDS: LABETALOL HCL 100 MG TABLET (FP) PO SCH ×2 (10:14→21:51)
[2022-06-29] MEDS: VITAMIN B COMP W-C 1 EA TABLET (NEPHRO-VITE) PO SCH (10:14)
[2022-06-29] MEDS: HYDROCHLOROTHIAZIDE 25 MG TABLET (FP) PO SCH (10:14)
[2022-06-29] MEDS: DONEPEZIL HCL 10 MG TABLET (FP) PO SCH (10:14)
[2022-06-29] MEDS: LISINOPRIL 5 MG TABLET PO SCH (10:14)
[2022-06-29] MEDS: HEPARIN INFUSION - 25,000 UNITS/500 ML INFUS.BAG IVPB SCH ×3 (10:45→22:05)
[2022-06-29 20:48] VITALS: BMI 26.2
[2022-06-29] MEDS: ATORVASTATIN CA 80 MG TABLET (FP) PO SCH (21:50)
[2022-06-30] MEDS: INSULIN SLIDING SCALE (NOVOLOG) 1 VIAL SQ SCH ×4 (06:14→21:45)
[2022-06-30 09:32] LABS: HEMATOCRIT 34.4 % (32.4-45.2); HEMOGLOBIN 11.2 GM/dL (10.7-15.3); MCH 28.5 pg (25.7-33.7); MCHC 32.5 g/dl (32.0-36.0); MEAN CELL VOLUME 87.6 fl (80-96); MEAN PLT VOLUME 9.7 fl (7.5-11.1); PLATELET COUNT 169 10^3/uL (134-434); RBC 3.93 M/mm3 (3.60-5.2); RDW 13.5 % (11.6-15.6); WHITE BLOOD COUNT 6.9 K/mm3 (4.0-10.0)
[2022-06-30] MEDS: LABETALOL HCL 100 MG TABLET (FP) PO SCH ×2 (10:26→21:44)
[2022-06-30] MEDS: CLOPIDOGREL BISULFATE 75 MG TABLET (FP) PO SCH (10:26)
[2022-06-30] MEDS: VITAMIN B COMP W-C 1 EA TABLET (NEPHRO-VITE) PO SCH (10:26)
[2022-06-30] MEDS: HYDROCHLOROTHIAZIDE 25 MG TABLET (FP) PO SCH (10:26)
[2022-06-30] MEDS: DONEPEZIL HCL 10 MG TABLET (FP) PO SCH (10:26)
[2022-06-30] MEDS: LISINOPRIL 5 MG TABLET PO SCH (10:26)
[2022-06-30 13:50] VITALS: RESP 18
[2022-06-30] MEDS: ATORVASTATIN CA 80 MG TABLET (FP) PO SCH (21:44)
[2022-06-30] MEDS: APIXABAN 5 MG TABLET PO SCH (21:44)
[2022-07-01] MEDS: INSULIN SLIDING SCALE (NOVOLOG) 1 VIAL SQ SCH ×2 (06:10→10:48)
[2022-07-01 08:09] LABS: HEMATOCRIT 31.5 % (32.4-45.2); HEMOGLOBIN 10.3 GM/dL (10.7-15.3); MCH 28.5 pg (25.7-33.7); MCHC 32.6 g/dl (32.0-36.0); MEAN CELL VOLUME 87.6 fl (80-96); MEAN PLT VOLUME 10.1 fl (7.5-11.1); PLATELET COUNT 156 10^3/uL (134-434); RDW 13.4 % (11.6-15.6); WHITE BLOOD COUNT 6.7 K/mm3 (4.0-10.0)
[2022-07-01 10:09] LABS: CALCIUM 8.4 mg/dL (8.5-10.1)
[2022-07-01 10:11] LABS: BLOOD UREA NITROGEN 34.9 mg/dL (7-18)
[2022-07-01 10:13] LABS: CREATININE 2.4 mg/dL (0.55-1.3)
[2022-07-01] MEDS: CLOPIDOGREL BISULFATE 75 MG TABLET (FP) PO SCH (10:48)
[2022-07-01] MEDS: DONEPEZIL HCL 10 MG TABLET (FP) PO SCH (10:48)
[2022-07-01] MEDS: APIXABAN 5 MG TABLET PO SCH (10:49)
[2022-07-01] MEDS: LISINOPRIL 5 MG TABLET PO SCH (10:49)
[2022-07-01] MEDS: VITAMIN B COMP W-C 1 EA TABLET (NEPHRO-VITE) PO SCH (10:49)
[2022-07-01] MEDS: LABETALOL HCL 100 MG TABLET (FP) PO SCH (10:49)
[2022-07-01] MEDS: HYDROCHLOROTHIAZIDE 25 MG TABLET (FP) PO SCH (10:50)
[2022-07-01] MEDS ORDERED: APIXABAN 5 MG TABLET PO SCH (14:14)
[2022-07-01 14:52] VITALS: BP 129/74; PULSE 77; TEMP 98.2
== END 2022-07-01 16:55 | disposition home or self-care (01) | DRG 300 ==
LOC: JER 19:27 → JERBED 22:43 → J7W 06-28 03:33
PROVIDERS: ADMIT Internal Medicine
DX: I82.432 Acute embolism and thrombosis of left popliteal vein (principal); N18.4 Chronic kidney disease, stage 4 (severe); E86.0 Dehydration; M71.22 Synovial cyst of popliteal space [Baker], left knee; Z79.4 Long term (current) use of insulin; E11.22 Type 2 diabetes mellitus with diabetic chronic kidney disease; I12.9 Hypertensive chronic kidney disease with stage 1 through stage 4 chronic kidney disease, or unspecified chronic kidney disease; D63.1 Anemia in chronic kidney disease; F03.90 Unspecified dementia, unspecified severity, without behavioral disturbance, psychotic disturbance, mood disturbance, and anxiety; F39 Unspecified mood [affective] disorder; K21.9 Gastro-esophageal reflux disease without esophagitis; Z86.73 Personal history of transient ischemic attack (TIA), and cerebral infarction without residual deficits; I25.10 Atherosclerotic heart disease of native coronary artery without angina pectoris
CPT/HCPCS: 36415; 80048; 80053; 81003; 82550; 82962; 83735; 84100; 85025; 85027; 85610; 85730; 86850; 86900; 86901; 93005; 93010; 93971-TC; 97116-GP; 97161-GP; 99285-25; C9803-CS; J1644; U0003; U0005

== ENCOUNTER 2024-02-25 20:23 | Emergency (ER) | payer OTHER ==
[2024-02-25 20:36] VITALS: TEMP 97.7; BMI 26.7
[2024-02-25 21:22] LABS: BASO % 0.7 % (0-2.0); EOS % 1.5 % (0-4.5); LYMPH % 19.7 % (8-40); MCH 29.5 pg (25.7-33.7); MCHC 32.2 g/dl (32.0-36.0); MEAN CELL VOLUME 91.6 fl (80-96); MEAN PLT VOLUME 9.8 fl (7.5-11.1); MONO % 9.4 % (3.8-10.2); NEUT % 68.7 % (42.8-82.8); PLATELET COUNT 140 10^3/uL (134-434); RBC 3.39 M/mm3 (3.60-5.2); RDW 13.8 % (11.6-15.6); WHITE BLOOD COUNT 7.2 K/mm3 (4.0-10.0)
[2024-02-25 21:41] LABS: POTASSIUM 5.5 mmol/L (3.5-5.1)
[2024-02-25 21:43] LABS: PROTHROMBIN TIME (PATIENT) 12.1 SEC (9.7-13.0)
[2024-02-25 21:44] LABS: ACTIVATED PTT 28.4 SECONDS (25.2-36.5); INR 1.04 (0.83-1.09)
[2024-02-25] MEDS ORDERED: ACETAMINOPHEN INJECTION 100 ML IVPB ONE (21:44)
[2024-02-25 21:49] LABS: CALCIUM 8.5 mg/dL (8.5-10.1)
[2024-02-25] MEDS: ACETAMINOPHEN 1000 MG/100 ML BAG IVPB ONE (21:49)
[2024-02-25 21:50] LABS: ALBUMIN 2.8 g/dl (3.4-5.0); BLOOD UREA NITROGEN 43.6 mg/dL (7-18); MAGNESIUM 2.2 mg/dL (1.8-2.4)
[2024-02-25] MEDS: LACTATED RINGERS SOLUTION 1000 ML INFUS.BAG IV ONE (21:50)
[2024-02-25 21:51] LABS: EPI CELLS 12 /uL (0-25.1); HYALINE CASTS 1 /uL (0-3.1); URINE APPEARANCE CLEAR; URINE BACTERIA 4 /uL (0-1359); URINE BILIRUBIN NEGATIVE (NEGATIVE); URINE COLOR YELLOW; URINE GLUCOSE (UA) NEGATIVE (NEGATIVE); URINE KETONE TRACE (NEGATIVE); URINE LEUK ESTERASE TRACE (NEGATIVE); URINE NITRITE NEGATIVE (NEGATIVE); URINE PROTEIN 2+ (NEGATIVE); URINE RBC 10 /uL (0-23.9); URINE UROBILINOGEN 0.2 mg/dL (0.2-1.0); URINE WBC 50 /uL (0-25.8)
[2024-02-25 21:52] LABS: PHOSPHOROUS 4.9 mg/dL (2.5-4.9)
[2024-02-25 21:53] LABS: CREATININE 3.3 mg/dL (0.55-1.3)
[2024-02-25 21:54] LABS: BILIRUBIN,TOTAL 0.5 mg/dL (0.2-1); TOT PROT 6.5 g/dl (6.4-8.2)
[2024-02-25 22:58] LABS: POTASSIUM 5.1 mmol/L (3.5-5.1)
[2024-02-25 23:00] LABS: CALCIUM 8.2 mg/dL (8.5-10.1)
[2024-02-25 23:03] LABS: CREATININE 3.3 mg/dL (0.55-1.3)
[2024-02-25 23:25] VITALS: BP 181/82; PULSE 70; RESP 18
== END 2024-02-25 23:25 | disposition home or self-care (01) ==
LOC: JER 20:23
DX: R53.1 Weakness (principal); M54.50 Low back pain, unspecified; R53.81 Other malaise; Z20.822 Contact with and (suspected) exposure to COVID-19
CPT/HCPCS: 0241U-QW; 36415; 71045-TC-FY; 80048; 80053; 81003; 82962; 83735; 84100; 84484; 85025; 85610; 85730; 86850; 86900; 86901; 87086; 93005; 93010; 99285-25